=== PATIENT | female | born 1945 | race Caucasian/White ===

== ENCOUNTER 2021-08-28 12:20 | Inpatient (IN) | payer MEDICARE, MEDICAID ==
[~2021-08-28] VITALS: Ht 162.6 cm; Wt 59.5 kg
[2021-08-28] MEDS: METOPROLOL 5 MG/5 ML VIAL IV SCH ×3 (13:10→13:20)
[2021-08-28] MEDS ORDERED: DULC10SU2 PR (13:12)
[2021-08-28] MEDS ORDERED: ADV500INH INH (13:12)
[2021-08-28] MEDS ORDERED: ELIQ2.5T PO (13:12)
[2021-08-28] MEDS ORDERED: MELA5TAB21 PO (13:12)
[2021-08-28] MEDS ORDERED: PROA1AER2 INH (13:12)
[2021-08-28] MEDS ORDERED: SERT-141 PO (13:12)
[2021-08-28] MEDS ORDERED: PEPC1TAB5 PO (13:12)
[2021-08-28] MEDS ORDERED: MIDO5TA PO (13:12)
[2021-08-28 13:24] LABS: BASO % 0.5 % (0.0-1.0); EOS % 0.5 % (0.0-3.0); HEMATOCRIT 38.8 % (36.0-47.0); HEMOGLOBIN 11.1 g/dl (12.0-15.5); LYMPH # 0.7 10^3/uL (1.5-5.0); LYMPH % 8.2 % (24.0-44.0); MEAN CORPUSCULAR HEMOGLOBIN 31.9 pg (27.0-33.0); MEAN CORPUSCULAR HGB CONC 28.6 g/dl (32.0-36.5); MEAN CORPUSCULAR VOLUME 111.5 fl (80.0-96.0); MONO # 0.6 10^3/uL (0.0-0.8); MONO % 7.5 % (2.0-8.0); NEUTROPHILS # 6.8 10^3/uL (1.5-8.5); NEUTROPHILS % 82.1 % (36.0-66.0); PLATELET COUNT, AUTOMATED 151 10^3/uL (150-450); RED BLOOD COUNT 3.48 10^6/uL (4.00-5.40); WHITE BLOOD COUNT 8.3 10^3/uL (4.0-10.0)
[2021-08-28] MEDS ORDERED: AMIODARONE HCL 150 MG in IV 1 EA IV STA (13:29)
--- NOTE | 2021-08-28 13:44 | REP ---
INDICATION: tachycardia COMPARISON: None. TECHNIQUE: Portable AP view of the chest FINDINGS: Cardiomegaly and diffuse chronic interstitial changes. Bibasilar opacities including elements of consolidation and pleural effusion are suspected along with prominent pulmonary vasculature. IMPRESSION: Findings described above suggest CHF. Correlation is required. <Electronically signed by Gurinder Murray > 08/28/21 [id number]
[2021-08-28 13:46] LABS: RSV AMPLIFICATION NEGATIVE (NEGATIVE)
[2021-08-28 14:14] LABS: ALBUMIN 2.9 GM/DL (3.2-5.2); BILIRUBIN,DIRECT 0.4 MG/DL (0.0-0.2); BILIRUBIN,TOTAL 0.7 MG/DL (0.2-1.0); CREATININE FOR GFR 5.87 MG/DL (0.55-1.30); GLOMERULAR FILTRATION RATE 7.4 (>39); POTASSIUM SERUM 5.1 MEQ/L (3.5-5.1); THYROID STIMULATING HORMONE 2.56 uIU/ML (0.358-3.740); TOTAL PROTEIN 8.3 GM/DL (6.4-8.2)
[2021-08-28] MEDS ORDERED: NS 500 ML IV ONE (14:30)
[2021-08-28] MEDS ORDERED: DIGOXIN INJ 0.5 MG/2 ML AMP (J1160) IV ONE (15:40)
[2021-08-28] MEDS ORDERED: HOME MED LIST COMPLETE! XX SCH (16:20)
[2021-08-28] MEDS ORDERED: MELA1TAB9 PO (16:20)
[2021-08-28] MEDS ORDERED: ZOLO100T PO (16:20)
--- NOTE | 2021-08-28 17:09 | HPEPDOC ---
[facility] Medical History & Physical Date of Admission Aug 28, 2021 Date of Service: Aug 28, 2021 History and Physical CHIEF COMPLAINT: "I don't know" HISTORY OF PRESENT ILLNESS: 76-year-old female sent from [facility] with primary concerns of shortness of breath and increased heart rate. Patient is a very poor historian and looking through her records she has underlying dementia. Therefore it is difficult to obtain history and review of systems. When asked why she came to the hospital, she reported " I do not know". She was asked if she has chest pain, abdominal pain, problem with urination and bowel movements and report "all of that" but not able to provide details. She was asked if she was having any of the pain now but reported "no, before "but was unable to provide details. She did report abdominal pain which she can said was there for a while and was unable to provide details. In the emergency room department, she was noted to be in CHF exacerbation as well as atrial fibrillation with rapid ventricular response. There was a MOST form in the chart, which stated she is full code. PAST MEDICAL HISTORY: As per records at present 1. COPD (on home 02 2-3L) 2. Dementia 3. Combined systolic and diastolic heart failure 4. Atrial fibrillation 5. Anxiety 6. Thrombocytopenia 7. Hyperlipidemia 8. Hypertension 9. Coronary artery disease 10. GERD 11. Constipation 12. End-stage renal disease 13. Iron deficiency anemia PAST SURGICAL HISTORY: -As per records 1. Presence of urogenital implants SOCIAL HISTORY: She is unable to provide this due to her underlying FAMILY HISTORY: Unable to provide ALLERGIES: Please see below. REVIEW OF SYSTEMS: Difficult to obtain review of systems and entirely. As above. HOME MEDICATIONS: Please see below. PHYSICAL EXAMINATION: VITAL SIGNS: Please see below General: Lying in bed, no acute distress Head/Neck/Throat: Trachea midline, mucous membranes moist Eyes: Sclera anicteric, no erythema or discharge appreciated bilaterally Thorax: Normal respiratory effort on 3 L nasal cannula, crackles appreciated bilaterally Cardiovascular: Irregularly irregular rhythm with heart rates up to 126, normal S1, S2, radial and DP pulses appreciated Abdomen: Bowel sounds present, soft, mild tenderness reported with palpation, no rebound tenderness, not distended. Genitourinary: No CVA tenderness, no Reddy in place Musculoskeletal: On casual observation she is moving her extremities. When asked to sit up she says she needs help. Skin: Warm, dry Neurologic: Awake, alert, oriented to self and place. She is able to follow commands. She is able to lift her legs off the examination bed. Reports pain when asked to lift her arms. LABORATORY DATA: See below. IMAGING: Chest x-ray suggestive of CHF MICROBIOLOGY: Please see below. ASSESSMENT/PLAN: 76-year-old female sent from [place] for complaints of shortness of breath and atrial fibrillation with rapid ventricular response. She is a poor historian and unable to reliably provide a review of systems or give details about her past medical history. An attempt to call the family members (sister Ann Li at [phone]) was made. Patient sister reported that the patient has been in and out of hospitalization and rehab since November. Over the last few months, she was refusing to talk to them and felt that overall her clinical status was deteriorating. Looking at the records sent from [place] is noted that she was admitted from [facility]. They did not know she was there. Called the senior living, reported pt is normally forgetful and unable to recall medical hx. She is able to hold a conversation, but not always reliable. She has had episodes where she desat, and 02 has been increased in the past. Today, her nurse reported she was feeling short of breath and her 02 dropped to 70%; and her blood pressure was high, to the "150s". #Atrial fibrillation with rapid ventricular response -Presented with heart rates as high as 149 in the emergency room department. -Her EKG noted no acute ST/T wave changes. Follow-up on troponin -She received bb in the ed, and this dropped her blood pressure. Subsequently, received amiodarone 150x1, and digoxin 0.5 mg x 1, which helped decrease her heart rate to 125 and continues to come down. If she continues to have increased heart rate we will utilize digoxin 0.25x1. -Continue with apixaban #Shortness of breath -Likely secondary to her CHF exacerbation; plan as below. #CHF exacerbation -Likely induced by her tachyarrhythmia. She will likely benefit from dialysis with ultrafiltration. Nephrology has been consulted #Abdominal pain -Follow up in ct-scan of abd #ESRD -Nephrology made aware of pt. Plan for possible dialysis today or Thursday. #COPD -As per family, she is on baseline 2 to 3 L home oxygen. There was no wheezing appreciated on examination. Albuterol as needed low suspicion for COPD exacerbation at this time. #?CAD; HLD -This was reported in her med list problem sent from [facility]. However she is not on any antiplatelet therapy or statins once medications reconciled. #Depression/anxiety -Continue with sertraline #Dementia -Suspect this is advancing. Reorientation. DVT prophylaxis -Offered by apixaban Vital Signs Vital Signs Date Time Temp Pulse Resp B/P (MAP) Pulse Ox O2 Delivery O2 Flow Rate FiO2 08/28/21 15:25 142 08/28/21 15:20 91/60 (70) 08/28/21 13:40 95 08/28/21 13:03 Nasal Cannula 3.0 08/28/21 12:35 96.9 22 Laboratory Data Labs 24H Laboratory Tests 2 08/28/21 12:52: Immature Granulocyte % (Auto) 1.2, Neutrophils (%) (Auto) 82.1H, Lymphocytes (%) (Auto) 8.2L, Monocytes (%) (Auto) 7.5, Eosinophils (%) (Auto) 0.5, Basophils (%) (Auto) 0.5, Neutrophils # (Auto) 6.8, Lymphocytes # (Auto) 0.7L, Monocytes # (Auto) 0.6, Eosinophils # (Auto) 0.0, Basophils # (Auto) 0.0, Nucleated Red Blood Cells % (auto) 0.0, Anion Gap 6L, Glomerular Filtration Rate 7.4L, Calcium Level 9.0, Total Bilirubin 0.7, Direct Bilirubin 0.4H, Aspartate Amino Transf (AST/SGOT) 10, Alanine Aminotransferase (ALT/SGPT) 14, Alkaline Phosphatase 105, Total Protein 8.3H, Albumin 2.9L, Albumin/Globulin Ratio 0.5L, Thyroid Stimulating Hormone (TSH) 2.560, Coronavirus (COVID-19)(PCR) NEGATIVE, Influenza Type A (RT-PCR) NEGATIVE, Influenza Type B (RT-PCR) NEGATIVE, Respiratory Syncytial Virus (PCR) NEGATIVE 08/28/21 13:32: POC Troponin I (Misc) 0.06 CBC/BMP Laboratory Tests 08/28/21 12:52 Microbiology Microbiology 08/28/21 Blood Culture, Received Pending Home Medications Scheduled Apixaban (Eliquis) 2.5 Mg Tablet, 2.5 MG PO BID Famotidine (Pepcid) 20 Mg Tablet, 20 MG PO DAILY Melatonin (Melatonin) 5 Mg Tablet, 5 MG PO QHS Midodrine HCl (Midodrine HCl) 5 Mg Tablet, 5 MG PO 3XW TUE/THURS/SAT AM Salmeterol/Fluticasone (Advair 500-50 Diskus) 1 Each Blst.w.dev, 1 PUFF INH BID Sertraline Hcl (Zoloft) 100 Mg Tablet, 100 MG PO QPM Scheduled PRN Albuterol Sulfate (Proair Respiclick) 90 Mcg Aer.pow.ba, 2 PUFF INH Q6H PRN for SHORTNESS OF BREATH Bisacodyl (Dulcolax) 10 Mg Supp.rect, 1 SUPP OK DAILY PRN for CONSTIPATION Allergies Coded Allergies: NSAIDS (Non-Steroidal Anti-Inflamma (Verified Allergy, Unknown, 08/28/21) Penicillins (Verified Allergy, Unknown, 08/28/21) Quinolones (Verified Allergy, Unknown, 08/28/21) capsaicin (Verified Allergy, Unknown, 08/28/21) diclofenac (Verified Allergy, Unknown, 08/28/21) misoprostol (Verified Allergy, Unknown, 08/28/21) risedronate sodium (Verified Allergy, Unknown, 08/28/21) A-FIB/CHADSVASC A-FIB History Current/History of A-Fib/PAF?: Yes Current PO Anticoag Therapy: Yes JOSE ANTONIO CHATMAN M.D. Aug 28, 2021 17:09
[2021-08-28] MEDS ORDERED: ALBUTEROL 90 MCG/ACT 8GM HFA INHALER INH PRN (17:15)
[2021-08-28] MEDS ORDERED: ISOVUE-370 76% 100ML VIAL As Ordered ONE (17:26)
[2021-08-28] MEDS ORDERED: DIGOXIN 0.25 MG TAB PO ONE (22:00)
[2021-08-29] VITALS: BP 92/50
[2021-08-29] MEDS: SERTRALINE 100 MG TAB PO SCH ×2 (00:27→21:35)
[2021-08-29] MEDS: APIXABAN 2.5 MG TAB (ELIQUIS) PO SCH ×3 (00:27→21:35)
--- NOTE | 2021-08-29 00:38 | REPVR ---
PROCEDURE INFORMATION: Exam: CTA Chest With Contrast Exam date and time: 08/28/2021 11:34 PM Age: 76 years old Clinical indication: Other: R/O pe TECHNIQUE: Imaging protocol: Computed tomographic angiography of the chest with contrast. 3D rendering (Not supervised by radiologist): MIP and/or 3D reconstructed images were created by the technologist. Radiation optimization: All CT scans at this facility use at least one of these dose optimization techniques: automated exposure control; mA and/or kV adjustment per patient size (includes targeted exams where dose is matched to clinical indication); or iterative reconstruction. Contrast material: ISOVUE 370; Contrast volume: 100 ml; Contrast route: INTRAVENOUS (IV); COMPARISON: CR PORTABLE CHEST X-RAY 08/28/2021 1:23 PM FINDINGS: Pulmonary arteries: Suggestion of pulmonary arterial hypertension. No pulmonary emboli. Aorta: Atherosclerotic disease of the thoracic aorta. Lungs: Bibasilar mucoid impaction. Mild interstitial pulmonary edema. Pleural spaces: Small bilateral pleural effusions with adjacent compressive atelectasis. Heart: Cardiomegaly. Small to moderate pericardial effusion. Coarsely calcified mitral annulus. Atherosclerotic disease of the coronary arteries. Lymph nodes: Unremarkable. No enlarged lymph nodes. Bones/joints: Osteopenia. Severe osteoarthritis in the bilateral shoulders with extensive multiple loose bodies and marginal osteophytes. Subacute to chronic fracture deformities of several bilateral anterolateral ribs. Kyphosis of the thoracic spine. Severe multilevel degenerative disease. Anterior wedge compression fractures of T4 and T5, likely chronic. Mild dextroscoliosis. Soft tissues: Unremarkable. IMPRESSION: No acute pulmonary embolic disease. Suggestion of pulmonary arterial hypertension Cardiomegaly. Small to moderate pericardial effusion. Small bilateral pleural effusions with adjacent compressive atelectasis. Mild interstitial pulmonary edema. Electronically signed by: Franklyn Spain On 08/29/2021 00:37:47 AM
--- NOTE | 2021-08-29 00:44 | REPVR ---
PROCEDURE INFORMATION: Exam: CT Abdomen And Pelvis With Contrast Exam date and time: 08/28/2021 11:34 PM Age: 76 years old Clinical indication: Other: Diffuse abd pain TECHNIQUE: Imaging protocol: Computed tomography of the abdomen and pelvis with contrast. Radiation optimization: All CT scans at this facility use at least one of these dose optimization techniques: automated exposure control; mA and/or kV adjustment per patient size (includes targeted exams where dose is matched to clinical indication); or iterative reconstruction. Contrast material: ISOVUE 370; Contrast volume: 100 ml; Contrast route: INTRAVENOUS (IV); COMPARISON: CR PORTABLE CHEST X-RAY 08/28/2021 1:23 PM FINDINGS: Liver: Mild hepatomegaly. Liver contour nodularity is concerning for cirrhosis. Gallbladder and bile ducts: Mildly distended gallbladder. Pancreas: Normal. No ductal dilation. Spleen: Normal. No splenomegaly. Adrenal glands: Mild bilateral adrenal hyperplasia. Kidneys and ureters: Bilateral renal cortical atrophy. Multiple bilateral renal cysts and additional subcentimeter low-attenuation renal lesions, too small to characterize. Stomach and bowel: Innumerable surgical clips in the left upper quadrant with suggestion of partial gastrectomy. Scattered colonic diverticula. No evidence of acute diverticulitis. Mild nonspecific bowel wall thickening involving loops of small and large bowel. Under distension is favored. Enterocolitis cannot be completely excluded. Appendix: No evidence of appendicitis. Intraperitoneal space: Unremarkable. No free air. No significant fluid collection. Vasculature: Severe atherosclerotic disease of the abdominal aorta. Lymph nodes: Unremarkable. No enlarged lymph nodes. Urinary bladder: Unremarkable as visualized. Reproductive: Status post hysterectomy. Bones/joints: Osteopenia. Severe multilevel degenerative disease and facet arthropathy of the lumbar spine. Stenosis of the spinal canal and neural foramina at several levels. Mild scoliosis. Soft tissues: Unremarkable. IMPRESSION: Innumerable surgical clips in the left upper quadrant with suggestion of partial gastrectomy. Scattered colonic diverticula. No evidence of acute diverticulitis. Mild nonspecific bowel wall thickening involving loops of small and large bowel. Under distension is favored. Enterocolitis cannot be completely excluded. Normal appendix. No hydronephrosis or nephrolithiasis bilaterally. Mildly distended gallbladder without other specific signs of acute cholecystitis. Mild hepatomegaly. Liver contour nodularity is concerning for cirrhosis. COMMENTS: Consistent with the [employer]'s Incidental Findings Committee white paper (J Am Mikey Radiol 2018): Any incidental renal lesion less than 1 cm or classified as too small to characterize, or any incidental cystic renal lesion characterized as simple-appearing, is likely benign. No follow-up imaging is recommended for these lesions per consensus recommendations based on imaging criteria. Electronically signed by: Franklyn Spain On 08/29/2021 00:43:54 AM
[2021-08-29 04:00] VITALS: BP 142/74
[2021-08-29 06:09] LABS: HEMATOCRIT 35.4 % (36.0-47.0); MEAN CORPUSCULAR HEMOGLOBIN 31.8 pg (27.0-33.0); MEAN CORPUSCULAR HGB CONC 28.2 g/dl (32.0-36.5); MEAN CORPUSCULAR VOLUME 112.7 fl (80.0-96.0); PLATELET COUNT, AUTOMATED 135 10^3/uL (150-450); RED BLOOD COUNT 3.14 10^6/uL (4.00-5.40); WHITE BLOOD COUNT 8.1 10^3/uL (4.0-10.0)
[2021-08-29 06:30] LABS: ALBUMIN 2.4 GM/DL (3.2-5.2); BILIRUBIN,TOTAL 0.6 MG/DL (0.2-1.0); CALCIUM LEVEL 9.2 MG/DL (8.8-10.2); CREATININE FOR GFR 6.36 MG/DL (0.55-1.30); GLOMERULAR FILTRATION RATE 6.8 (>39); MAGNESIUM LEVEL 2.5 MG/DL (1.8-2.4); PHOSPHORUS LEVEL 7.9 MG/DL (2.5-4.9); POTASSIUM SERUM 5.5 MEQ/L (3.5-5.1); TOTAL PROTEIN 6.8 GM/DL (6.4-8.2)
--- NOTE | 2021-08-29 06:33 | ECGEPIP ---
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
[2021-08-29] MEDS ORDERED: LIDOCAINE 1% SDV 5ML VIAL SC PRN (07:15)
[2021-08-29] MEDS ORDERED: SODIUM CHLORIDE 0.9% 1000ML IV PRN (07:15)
[2021-08-29] MEDS: MIDODRINE 5 MG TAB PO SCH (08:04)
[2021-08-29] MEDS: DIGOXIN 0.25 MG TAB PO SCH (08:05)
[2021-08-29 08:19] VITALS: BP 114/70
[2021-08-29] MEDS: FAMOTIDINE 20 MG TAB PO SCH (12:51)
--- NOTE | 2021-08-29 13:02 | IPNPDOC ---
Text Note Date of Service The patient was seen on 08/29/21. NOTE Subjective: 76-year-old female presented from [facility] with primary concerns of shortness of breath and increased heart rate. She is a very poor historian and has clinically been deteriorating over the year. As per the family, she has required multiple admissions to hospitals as well as rehabs for various reasons that they were unaware of. The patient is unable to explain these. She was seen and examined at bedside this morning in dialysis. When she was asked if there was anything bothering her, she reported " everything and always" she was unable to specify her particular complaint or provide details. She does have underlying dementia which makes it difficult to obtain review of systems. Review of systems: 1 as above Physical exam: General: Lying in bed, no acute distress Head/Neck/Throat: Trachea midline, mucous membranes moist Eyes: Sclera anicteric, no erythema or discharge appreciated bilaterally Thorax: Normal respiratory effort 3 L nasal cannula, bibasilar crackles appreciated bilaterally Cardiovascular: Normal rate, regular rhythm, normal S1, S2; no S3, S4, rubs/gallops/murmurs Abdomen: Bowel sounds present, soft, mild tenderness reported with palpation diffusely Genitourinary: No CVA tenderness, no Reddy in place Musculoskeletal: Moving all extremities on casual observation Skin: Warm, dry Neurologic: AAOx3, speech fluent and goal-directed, no focal deficits, grossly intact Labs: See below Imaging: Please see imaging section Assessment/plan: #Atrial fibrillation with rapid ventricular response -Presented with heart rates as high as 149 in the emergency room department. Today, better controlled and less than 110. -Her EKG noted no acute ST/T wave changes, troponin trend was negative. -Unable to tolerate beta-barbara due to a drop in blood pressure. C/w digoxin. Systemic anticoagulation with apixaban. -Follow-up on echocardiogram #Shortness of breath -Resolved. Likely secondary to her CHF exacerbation; plan as below. -CTA of chest is negative for pe. #CHF exacerbation -Likely induced by her tachyarrhythmia. She will likely benefit from dialysis with ultrafiltration. Nephrology has been consulted -Follow-up on echocardiogram #Abdominal pain -Likely due to underlying cirrhosis; and possible enterocolitis seen on ct. She is tolerating a diet, no nausea, vomiting reported. #ESRD -She got dialyzed on 08/29, nephrology following and will determine next dialysis session. #COPD -As per family, she is on baseline 2 to 3 L home oxygen. There was no wheezing appreciated on examination. Albuterol as needed low suspicion for COPD exacerbation at this time. #?CAD; HLD -This was reported in her med list problem sent from [employer]. However she is not on any antiplatelet therapy or statins once medications reconciled. #Depression/anxiety -Continue with sertraline #Dementia -Suspect this is advancing. Reorientation. #Deconditioned/osteopenia and OA -Severe osteoarthritis in the bilateral shoulders. Subacute to chronic fracture deformities of several bilateral anterolateral ribs. Kyphosis of the thoracic spine. Severe multilevel degenerative disease. Anterior wedge compression fractures of T4 and T5, likely chronic. Mild dextroscoliosis. -Check vit. d levels. DVT prophylaxis -Offered by apixaban VS,Seymour, I+O VS, Seymour, I+O Laboratory Tests 08/29/21 05:31 Vital Signs Date Time Temp Pulse Resp B/P (MAP) Pulse Ox O2 Delivery O2 Flow Rate FiO2 08/29/21 08:19 97.4 115 20 114/70 (85) 99 Nasal Cannula 4.0 I&O- Last 24 Hours up to 6 AM 08/29/21 06:00 Intake Total 0 ml Balance 0 ml JOSE ANTONIO CHATMAN M.D. Aug 29, 2021 13:02
[2021-08-29 13:03] VITALS: BP 100/60
[2021-08-29 14:10] LABS: PERCENT SATURATION 74.3 % (13.2-45.0)
[2021-08-29 16:00] VITALS: BP 92/56
--- NOTE | 2021-08-29 17:14 | CR ---
NEPHROLOGY CONSULTATION DATE: 08/28/2021 REFERRING PHYSICIAN: Jono Ny MD REASON FOR CONSULTATION: To assist in the management of end-stage renal disease and shortness of breath. HISTORY OF PRESENT ILLNESS: Mrs. Downing is a 76-year-old female with multiple chronic medical problems. The patient is currently a resident at care home in [facility]. She is there for acute rehab and receives her maintenance hemodialysis in outpatient [facility] clinic for the last few weeks. She reports that she has been on dialysis for about 7 years in [place] and recently she was admitted to [facility] for rehab. She was sent to emergency room due to shortness of breath. Apparently she did miss her dialysis on August 27. The patient has significant dementia and unable to provide any accurate information. Nephrology consultation was requested and patient seen in the emergency room. PAST MEDICAL AND SURGICAL HISTORY: The patient herself is not able to provide much information other than a few questions. However, she is unable to provide accurate information. According to records, she has dementia, combined systolic and diastolic congestive heart failure, atrial fibrillation with rapid ventricular rate, end-stage renal disease, hypertension, hyperlipidemia, anxiety, gastroesophageal reflux disease and anemia. PAST SURGICAL HISTORY: Significant for right arm AV fistula creation and no other information available at present. PERSONAL AND SOCIAL HISTORY: Patient is currently a care home resident for rehab. She does not smoke or drink. It is not clear whether she had prior history of smoking. FAMILY HISTORY: Noncontributory and unobtainable. REVIEW OF SYSTEMS: Patient is not able to provide much accurate information. No fever reported by care home and patient is quite short of breath. She did miss her dialysis treatment on August 27. MEDICATIONS: Her medications in the nursing include Eliquis 3.5 mg b.i.d., Pepcid 20 mg daily, melatonin 5 mg at bedtime, midodrine 5 mg t.i.d., Advair Diskus 500/50 b.i.d., Sertraline 100 mg at bedtime, Albuterol inhaler as needed for shortness of breath and Dulcolax 10 mg rectal suppository as needed for constipation. ALLERGIES: She has multiple allergies including PENICILLIN, quinolones, NONSTEROIDALS, MISOPROSTOL AND NISEDRONATE. PHYSICAL EXAMINATION: This elderly, frail lady lying in the bed quite short of breath with oxygen induced. Temperature 97 degrees Fahrenheit, heart rate in the 140s and respiratory rate 20 per minute. Blood pressure 190/73 mmHg and oxygen saturation 97% on three liters oxygen. Her head is atraumatic. Oral mucosa is dry. Neck is supple and JVD is about 8 cm above the sternal angle. Heart sounds are tachycardic and irregular in rhythm. Lungs with diminished breath sounds and bilateral rales. Abdomen soft with significant tenderness in right upper and lower quadrant. Bowel sounds are present. No hepatosplenomegaly. Extremities without any cyanosis or clubbing. She is tender to touch wherever you touch her. Neurologically she is awake, able to answer questions. However, she is not very well oriented to her previous problems and history. LABORATORY DATA: WBC count 8.3, hemoglobin 11.1 and hematocrit 38.8. Platelets 151. Sodium 138, potassium 5.1, chloride 97, CO2 35, BUN 44 and creatinine 5.87. Glucose 136 and potassium 9.0. Total protein 8.3 and albumin 2.9. TSH level is 2.56. Chest x-ray done in the emergency room was consistent with cardiomegaly and chronic changes in addition to congestive heart failure. PROBLEMS: 1. Shortness of breath probably related to atrial fibrillation with rapid ventricular rate. She came with heart rate in the 140s. She probably has congestive heart failure related to rapid atrial fibrillation. At present, she has also missed her hemodialysis treatment yesterday. She is not hemodynamically quite stable for a gentle dialysis due to rapid ventricular rate with atrial fibrillation and risk for hypotension. Once she is hemodynamically stable, then we will plan to dialyze her. There is no emergent risk for respiratory failure at present. 2. End-stage renal disease. The patient has been on maintenance hemodialysis and she missed her dialysis on August 27. 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 Her electrolytes are stable. 3. Atrial fibrillation with rapid ventricular rate. The patient is being treated with Digoxin and she had already been on Eliquis as the outpatient. She has history of hypotension during dialysis so she has not been on beta barbara therapy. 4. Hypotension. Blood pressure is usually low during dialysis and she has been on midodrine 5 mg t.i.d. I will recommend to avoid calcium channel barbara or beta barbara use and her A fib can probably be controlled with digoxin or amiodarone. 5. Anemia. Her anemia is stable at present and does not need any urgent intervention. 6. Abdominal pain and sudden shortness of breath. I have discussed with the admitting physician who has concerns about possibility of pulmonary embolism. 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 She is already anticoagulated with Eliquis. Thank you for involving me in the care of Mrs. Downing. I will follow her along with you.
--- NOTE | 2021-08-29 18:57 | IPN ---
NEPHROLOGY PROGRESS NOTE DATE: 08/29/2021 SUBJECTIVE: Mrs. Downing is seen this morning during hemodialysis. She is feeling better and tolerating her dialysis treatment. Her heart rate has improved significantly compared to last night. She is still short of breath but feels better. She has no fever or chills. OBJECTIVE: PHYSICAL EXAMINATION: VITAL SIGNS: Temperature is 97.4 degrees Fahrenheit, heart rate between 82 and 115 per minute, respiratory rate 20 per minute, blood pressure was 114/70 mm of mercury, however went down to 70/52 during dialysis. She remains on oxygen 4 liters with oxygen saturation 99%. HEENT: Her head is atraumatic. Oral mucosa is dry. NECK: Neck veins are quite prominent and neck is supple. HEART: Sounds are irregular and somewhat tachycardic but improved compared to yesterday. LUNGS: Bilateral expiratory wheezing. ABDOMEN: Soft and bowel sounds are present. EXTREMITIES: Without any cyanosis or clubbing. Right arm AV fistula is currently being used for dialysis. NEUROLOGICAL: She is awake and able to answer simple questions. LABORATORY STUDIES: Today's labs show a WBC count of 8.1, hemoglobin 10.0 and hematocrit 35.4. Sodium 139, potassium 5.5, CO2 34, BUN 49 and creatinine 6.36. Glucose is 89 and calcium 9.2. Phosphorous level is 7.9. PROBLEMS: 1. Shortness of breath she has multiple factors causing her shortness of breath including systolic and diastolic congestive heart failure in the setting of end-stage renal disease and a missed dialysis treatment. She also had rapid atrial fibrillation which probably contributed to her decompensation. We will try to optimize her volume status with hemodialysis and removal of fluid. We are trying to remove about 3 liters of fluid, however her blood pressure is already low so she is probably not going to be able to remove more than 2 liters today. 2. End-stage renal disease - The patient did miss her dialysis on the and she is being dialyzed right now. She is tolerating her dialysis with some low blood pressure. 3. Hyperkalemia this is related to end-stage renal disease and missed hemodialysis. This will be corrected with dialysis as we are using 2.0 mEq potassium in her dialysis bath. 4. Anemia her anemia is stable and does not need any urgent intervention. 5. Recurrent hypotension she has a history of frequent hypotension during dialysis and has been on Midodrine 5 mg three times daily. We will consider to increase the dose if needed. At present she should continue with Midodrine 5 mg three times daily.
[2021-08-29 20:00] VITALS: BP 92/54
[2021-08-30] VITALS: BP_SYST 100; BP_SYST 92; BP_DIAS 50; BP_DIAS 54
[2021-08-30 04:00] VITALS: BP 106/61
[2021-08-30] MEDS ORDERED: ACETAMINOPHEN TAB 650MG DOSE (2X325MG) PO ONE (05:05)
[2021-08-30 05:11] LABS: HEMATOCRIT 37.7 % (36.0-47.0); HEMOGLOBIN 10.6 g/dl (12.0-15.5); MEAN CORPUSCULAR HEMOGLOBIN 32.1 pg (27.0-33.0); MEAN CORPUSCULAR HGB CONC 28.1 g/dl (32.0-36.5); PLATELET COUNT, AUTOMATED 150 10^3/uL (150-450); WHITE BLOOD COUNT 8.3 10^3/uL (4.0-10.0)
[2021-08-30 05:12] LABS: MEAN CORPUSCULAR VOLUME 114.2 fl (80.0-96.0)
[2021-08-30 05:34] LABS: CALCIUM LEVEL 8.8 MG/DL (8.8-10.2); CREATININE FOR GFR 3.56 MG/DL (0.55-1.30); GLOMERULAR FILTRATION RATE 13.2 (>39); MAGNESIUM LEVEL 2.2 MG/DL (1.8-2.4); PHOSPHORUS LEVEL 5.2 MG/DL (2.5-4.9); POTASSIUM SERUM 5.7 MEQ/L (3.5-5.1)
[2021-08-30] MEDS ORDERED: SODIUM CHLORIDE 0.9% 1000ML IV PRN (07:10)
[2021-08-30] MEDS ORDERED: LIDOCAINE 1% SDV 5ML VIAL SC PRN (07:10)
[2021-08-30 08:00] VITALS: BP 103/55
[2021-08-30] MEDS: MIDODRINE 5 MG TAB PO SCH (08:19)
[2021-08-30] MEDS: APIXABAN 2.5 MG TAB (ELIQUIS) PO SCH ×2 (08:19→20:23)
[2021-08-30] MEDS: DIGOXIN 0.25 MG TAB PO SCH (08:19)
[2021-08-30 08:59] LABS: TOTAL 25(OH) VITAMIN D 41.2 NG/ML (30.0-100.0)
[2021-08-30 09:00] LABS: FOLATE 5.5 NG/ML (>5.4)
[2021-08-30] MEDS ORDERED: ONDANSETRON 4 MG TAB PO ONE (09:35)
--- NOTE | 2021-08-30 10:04 | IPNPDOC ---
Text Note Date of Service The patient was seen on 08/30/21. NOTE Subjective: 76-year-old female presented from [facility] with primary concerns of shortness of breath and increased heart rate. She is a very poor historian and has clinically been deteriorating over the year. As per the family, she has required multiple admissions to hospitals as well as rehabs for various reasons that they were unaware of. The patient is unable to explain these. She was seen and examined at bedside this morning in dialysis. She reported f eeling nauseated today, and having abdominal pain. Otherwise had no new complaints. Review of systems: 10 point review of system was negative except for what is noted in the HPI Physical exam: General: Lying in bed, no acute distress Head/Neck/Throat: Trachea midline, mucous membranes moist Eyes: Sclera anicteric, no erythema or discharge appreciated bilaterally Thorax: Normal respiratory effort 3 L nasal cannula, bibasilar crackles appreciated bilaterally Cardiovascular: Normal rate, regular rhythm, normal S1, S2; no S3, S4, rubs/gallops/murmurs Abdomen: Bowel sounds present, soft, mild tenderness reported with palpation diffusely Genitourinary: No CVA tenderness, no Reddy in place Musculoskeletal: Moving all extremities on casual observation Skin: Warm, dry Neurologic: AAOx3, speech fluent and goal-directed, no focal deficits, grossly intact Labs: See below Imaging: Please see imaging section Assessment/plan: #Atrial fibrillation with rapid ventricular response -Resolved. C/w digoxin. Systemic anticoagulation with apixaban. -Follow-up on echocardiogram #Shortness of breath -Resolved. Likely secondary to her CHF exacerbation, missed dialysis; plan as below. -CTA of chest is negative for pe. #CHF exacerbation -Likely induced by her tachyarrhythmia; dialysis as planned by nephrology team -Follow-up on echocardiogram #Abdominal pain -Likely due to underlying cirrhosis; and possible enterocolitis seen on ct. She is tolerating a diet, had some nausea and vomiting today. Symptomatic management with Zofran #ESRD -She got dialyzed on , nephrology following and will determine next dialysis session. #COPD -As per family, she is on baseline 2 to 3 L home oxygen. There was no wheezing appreciated on examination. Albuterol as needed low suspicion for COPD exacerbation at this time. #?CAD; HLD -This was reported in her med list problem sent from [facility]. However she is not on any antiplatelet therapy or statins once medications reconciled. #Depression/anxiety -Continue with sertraline #Dementia -Suspect this is advancing. Reorientation. #Deconditioned/osteopenia and OA -Severe osteoarthritis in the bilateral shoulders. Subacute to chronic fracture deformities of several bilateral anterolateral ribs. Kyphosis of the thoracic spine. Severe multilevel degenerative disease. Anterior wedge compression fractures of T4 and T5, likely chronic. Mild dextroscoliosis. -Check vit. d levels. DVT prophylaxis -Offered by apixaban VS,Fishbone, I+O VS, Fishbone, I+O Laboratory Tests 08/30/21 04:47 Vital Signs Date Time Temp Pulse Resp B/P (MAP) Pulse Ox O2 Delivery O2 Flow Rate FiO2 08/30/21 08:19 95 08/30/21 08:00 98.4 16 103/55 (71) 100 Nasal Cannula 3.0 I&O- Last 24 Hours up to 6 AM 08/30/21 06:00 Intake Total 480 ml Output Total 2000 ml Balance -1520 ml JOSE ANTONIO CHATMAN M.D. Aug 30, 2021 10:04
--- NOTE | 2021-08-30 12:23 | IPN ---
NEPHROLOGY PROGRESS NOTE DATE: 08/30/2021 SUBJECTIVE: Ms. Downing is seen this morning on her bedside. She is still short of breath and weak. Her blood pressure has been low and she remains on midodrine 5 mg three times a day. Her heart rate has been below 100 most of the time. She was admitted with shortness of breath and rapid atrial fibrillation with heart rate in the 140s. She was dialyzed yesterday due to congestive heart failure and hyperkalemia; however, I am surprised to see her potassium level is still elevated at 5.7 this morning. We decided to dialyze her again today in view of hyperkalemia and congestive heart failure. PHYSICAL EXAMINATION: VITAL SIGNS: Temperature 98.4 degrees Fahrenheit, heart rate 94 per minute, respiratory rate 16 per minute, blood pressure 90s at the start of dialysis and went down to 78/50 mmHg, we were trying to remove about 2.5 liters of fluid; however, our goal has been cut down due to low blood pressure. Her oxygen saturation 100% on 3 liters oxygen. HEAD: Atraumatic. NECK: Supple and jugular venous distention (JVD) mildly elevated. HEART SOUNDS: Irregular. LUNGS: Bilateral wheezing and rhonchi. ABDOMEN: Soft and nontender. Bowel sounds are normal. EXTREMITIES: Without any cyanosis or clubbing. Right arm arteriovenous (AV) fistula is patent. NEUROLOGIC: She is awake and able to answer questions. LABORATORY DATA: Today's labs shows sodium 135, potassium 5.7, chloride 101, CO2 27, BUN 19, creatinine 3.56, glucose 82, calcium 8.2, phosphorus, however, is down to 5.2. Hemoglobin 10.6, hematocrit 37.7. PROBLEMS: 1. End-stage renal disease. Patient did miss one dialysis prior to and she was dialyzed yesterday. She is being dialyzed again today in view of hyperkalemia and congestive heart failure. 2. Hyperkalemia. Her potassium level was 5.5 yesterday and we dialyzed her with 2.0 mEq potassium bath. Today's hypokalemia is unexpected and probably she has some hemolysis, as it is reported in her labs. She is being dialyzed with 2.0 mEq potassium bath and that will completely correct her hyperkalemia. 3. Anemia. Her anemia is stable and does not need any urgent intervention. 4. Atrial fibrillation with rapid ventricular rate. She is doing better and heart rate has improved significantly. She should continue with chronic medications.
[2021-08-30] MEDS: IPRATROPIUM 0.5MG/ALBUTEROL 2.5MG INH SOL UD 3ML (DUONEB) NEB SCH ×2 (14:00→19:08)
--- NOTE | 2021-08-30 14:32 | ECHO ---
ECHOCARDIOGRAM DATE OF PROCEDURE: 08/29/2021 Age: Gender: Height: Weight: REFERRING PHYSICIAN: Dr. Jono Ny INDICATION: 2D MEASUREMENTS: Aortic root: 3.1 cm Left atrium 4.9 cm Left ventricle diastole 3.0 cm Ventricular septum 1.11 cm Posterior wall 2.2 cm DOPPLER MEASUREMENTS: No aortic stenosis or regurgitation. Aortic valve velocity 183 cm/s LVOT velocity 138 cm/s No mitral regurgitation. No mitral stenosis. Trace tricuspid regurgitation. Right ventricular systolic pressure 33-38 mmHg Estimated right atrial pressure of 5-10 mmHg Mild pulmonic regurgitation. DESCRIPTION: Rhythm was atrial fibrillation. This was a moderately technically difficult echocardiogram. No aortic arch view (technically difficult). This was a 2D, M mode, color flow Doppler, and pulse wave Doppler examination. CONCLUSIONS: 1. Normal left ventricle internal dimensions and wall thickness. Normal regional LV wall motion and wall thickening. Normal LV systolic function. LVEF 70% by visual estimate. 2. Severe left atrial dilatation. 3. Severe mitral annular calcification. No mitral regurgitation or stenosis. 4. Moderates-size pericardial effusion, measuring maximum 1.5 cm over the posterior wall of left ventricle. No diastolic chamber collapse. 5. Left pleural effusion. 6. Mild aortic valve sclerosis of a 3-cuspid aortic valve. No aortic regurgitation. 7. Suggestive of mild elevation of estimated right ventricle systolic pressure.
[2021-08-30 16:00] VITALS: BP 95/57
[2021-08-30] MEDS: SERTRALINE 100 MG TAB PO SCH (20:23)
[2021-08-31] VITALS: BP 103/48
[2021-08-31] MEDS: IPRATROPIUM 0.5MG/ALBUTEROL 2.5MG INH SOL UD 3ML (DUONEB) NEB SCH ×4 (01:22→19:25)
[2021-08-31 04:00] VITALS: BP 110/60
[2021-08-31 06:30] LABS: CALCIUM LEVEL 9.1 MG/DL (8.8-10.2); CREATININE FOR GFR 2.63 MG/DL (0.55-1.30); GLOMERULAR FILTRATION RATE 18.8 (>39); PHOSPHORUS LEVEL 4.8 MG/DL (2.5-4.9); POTASSIUM SERUM 4.4 MEQ/L (3.5-5.1)
[2021-08-31 07:55] VITALS: BP 98/48
[2021-08-31] MEDS: APIXABAN 2.5 MG TAB (ELIQUIS) PO SCH ×2 (10:21→19:53)
[2021-08-31] MEDS: FAMOTIDINE 20 MG TAB PO SCH (10:21)
[2021-08-31] MEDS: MIDODRINE 5 MG TAB PO SCH (10:21)
[2021-08-31] MEDS: DIGOXIN 0.25 MG TAB PO SCH (10:24)
--- NOTE | 2021-08-31 11:18 | IPNPDOC ---
Text Note Date of Service The patient was seen on 08/31/21. NOTE Subjective: 76-year-old female presented from [facility] with primary concerns of shortness of breath and increased heart rate. She is a very poor historian and has clinically been deteriorating over the year. As per the family, she has required multiple admissions to hospitals as well as rehabs for various reasons that they were unaware of. The patient is unable to explain these. Seen and examined at bedside this morning. She reports improvement in her ab dominal pain, and reported overall feeling better. She denied chest pain or shortness of breath. Review of systems: 10 point review of system was negative except for what is noted in the HPI Physical exam: General: Lying in bed, no acute distress Head/Neck/Throat: Trachea midline, mucous membranes moist Eyes: Sclera anicteric, no erythema or discharge appreciated bilaterally Thorax: Normal respiratory effort 3 L nasal cannula, bibasilar crackles appreciated bilaterally Cardiovascular: Normal rate, regular rhythm, normal S1, S2; no S3, S4, rubs/gallops/murmurs Abdomen: Bowel sounds present, soft, mild tenderness reported with palpation diffusely Genitourinary: No CVA tenderness, no Reddy in place Musculoskeletal: Moving all extremities on casual observation Skin: Warm, dry Neurologic: AAOx3, speech fluent and goal-directed, no focal deficits, grossly intact Labs: See below Imaging: Please see imaging section Assessment/plan: #Atrial fibrillation with rapid ventricular response -Resolved. C/w digoxin. Systemic anticoagulation with apixaban. -Follow-up on echocardiogram #Shortness of breath -Resolved. Likely secondary to her CHF exacerbation, missed dialysis; plan as below. -CTA of chest is negative for pe. #CHF exacerbation -Echocardiogram noted left ventricular ejection fraction of 70%. Likely induced by her tachyarrhythmia; dialysis as planned by nephrology team -Follow-up on echocardiogram #Abdominal pain -Likely due to underlying cirrhosis; and possible enterocolitis seen on ct. She is tolerating a diet, had some nausea and vomiting today. Symptomatic management with Zofran #ESRD -She got dialyzed on , nephrology following and will determine next dialysis session. #COPD -As per family, she is on baseline 2 to 3 L home oxygen. There was no wheezing appreciated on examination. Albuterol as needed low suspicion for COPD exacerbation at this time. #?CAD; HLD -This was reported in her med list problem sent from [facility]. However she is not on any antiplatelet therapy or statins once medications reconciled. #Depression/anxiety -Continue with sertraline #Dementia -Suspect this is advancing. Reorientation. #Deconditioned/osteopenia and OA -Severe osteoarthritis in the bilateral shoulders. Subacute to chronic fracture deformities of several bilateral anterolateral ribs. Kyphosis of the thoracic spine. Severe multilevel degenerative disease. Anterior wedge compression fractures of T4 and T5, likely chronic. Mild dextroscoliosis. -Check vit. d levels. DVT prophylaxis -Offered by apixaban Disposition: If pt continues to tolerate diet. She can be discharged back to [facility] VS,[place], I+O [facility] I+O Laboratory Tests 08/31/21 05:48 Vital Signs Date Time Temp Pulse Resp B/P (MAP) Pulse Ox O2 Delivery O2 Flow Rate FiO2 08/31/21 10:24 71 08/31/21 07:55 98.0 20 98/48 (65) 92 Nasal Cannula 3.0 I&O- Last 24 Hours up to 6 AM 08/31/21 06:00 Intake Total 568 ml Output Total 1500 ml Balance -932 ml JOSE ANTONIO CHATMAN M.D. Aug 31, 2021 11:18
--- NOTE | 2021-08-31 12:28 | IPN ---
NEPHROLOGY PROGRESS NOTE DATE: 08/31/2021 SUBJECTIVE: Vianey was seen and examined this morning at the bedside. She denies any complaints. No new shortness of breath. No palpitations. She was dialyzed yesterday with 1.5 liters of fluid removed. PHYSICAL EXAMINATION: VITAL SIGNS: Temperature 98.0, pulse 75respiratory rate 20, blood pressure 98/48, saturating 92% on 3 liters nasal cannula. INTAKE AND OUTPUT: Weight in the bed scale today is 63.3 kg. GENERAL: Patient is seen sitting in bed, elderly female, awake, alert, comfortable. Head of the bed is elevated. She is in no distress. HEENT: Sclerae is anicteric. Tongue is moist. Nasal cannula is in place. HEART SOUNDS: Irregularly irregular. LUNGS: Show diminish breath sounds bilaterally, but she is comfortable on nasal cannula. No accessory muscle use. No tachypnea. There is mildly reduced breath sounds at the bases, but there are no crackles or rales. ABDOMEN: Soft, obese and nontender. There is a fistula in the right arm, which is patent with thrill and bruit. EXTREMITIES: There is no edema in the extremities. She moves her extremities on command. SKIN: Warm and dry. Normal temperature and turgor. No pallor. LABORATORY STUDIES: White count 8.3, hemoglobin 10.6, platelets 160. Sodium 136, potassium 4.4, bicarbonate 28, BUN 13, creatinine 2.6. Blood cultures: No growth for 48 hours times two sets. CT angiogram August 28, 2021 shows no pulmonary embolism (PE). There is no cardiomegaly and no pericardial effusion and small bilateral pleural effusion and mild interstitial pulmonary edema. INPATIENT MEDICATIONS: Reviewed by myself. She continues on; - Duo-Nebs every 6 hours - Eliquis2.5 mg by mouth twice a day - digoxin 0.25 mg by mouth daily - Pepcid 20 mg every other day - midodrine 5 mg by mouth three times a day - sertraline 100 mg by mouth at bedtime. PROBLEMS: 1. End-stage renal disease on hemodialysis. Patient was dialyzed on on and on Thursday. She had a total of 3.5 liters removed. She had interstitial pulmonary edema and small pleural effusions on her CT angiogram. Her volume status is improved. Her next dialysis will be on Thursday. Her electrolytes and volume status are acceptable. 2. Hyperkalemia. It is resolved with back to back dialysis treatments on and Thursday. She is on a renal diet. Next dialysis will be on Thursday. 3. Chronic hypotension. She continues on midodrine. 4. Atrial fibrillation with rapid ventricular response. She is on systemic anticoagulation with low dose Eliquis and she is on digoxin which is managed by the primary team. 5. Chronic obstructive pulmonary disease (COPD). Patient continues on her chronic home oxygen and the usual bronchodilators. 6. Pericardial effusion. Patient has a moderate pericardial effusion on recent echocardiogram. She likely has underlying diastolic congestive heart failure. She was dialyzed on and Thursday and 3.5 liters of fluid were removed. Next dialysis will be on Thursday. Patient should be on a fluid restriction. There was no chamber collapse associated with the moderate size pericardial effusion.
[2021-08-31 12:58] VITALS: BP 102/56
[2021-08-31 16:31] VITALS: BP 98/52
[2021-08-31] MEDS: SERTRALINE 100 MG TAB PO SCH (19:53)
[2021-08-31 20:00] VITALS: BP 116/51
[2021-09-01] VITALS: BP 102/50
[2021-09-01] MEDS: IPRATROPIUM 0.5MG/ALBUTEROL 2.5MG INH SOL UD 3ML (DUONEB) NEB SCH ×4 (01:00→18:02)
[2021-09-01 04:00] VITALS: BP 99/46
[2021-09-01 04:51] LABS: HEMATOCRIT 35.8 % (36.0-47.0); HEMOGLOBIN 10.3 g/dl (12.0-15.5); MEAN CORPUSCULAR HGB CONC 28.8 g/dl (32.0-36.5); MEAN CORPUSCULAR VOLUME 111.2 fl (80.0-96.0); PLATELET COUNT, AUTOMATED 155 10^3/uL (150-450); RED BLOOD COUNT 3.22 10^6/uL (4.00-5.40); WHITE BLOOD COUNT 7.6 10^3/uL (4.0-10.0)
[2021-09-01 07:33] VITALS: BP 107/53
[2021-09-01] MEDS: DIGOXIN 0.25 MG TAB PO SCH (09:00)
[2021-09-01 09:25] LABS: ALBUMIN 2.3 GM/DL (3.2-5.2); BILIRUBIN,TOTAL 0.8 MG/DL (0.2-1.0); CREATININE FOR GFR 4.01 MG/DL (0.55-1.30); GLOMERULAR FILTRATION RATE 11.5 (>39)
[2021-09-01] MEDS: APIXABAN 2.5 MG TAB (ELIQUIS) PO SCH ×2 (09:43→20:44)
--- NOTE | 2021-09-01 10:34 | IPNPDOC ---
Text Note Date of Service The patient was seen on 09/01/21. NOTE Subjective: 76-year-old female presented from [facility] with primary concerns of shortness of breath and increased heart rate. She is a very poor historian and has clinically been deteriorating over the year. As per the family, she has required multiple admissions to hospitals as well as rehabs for various reasons that they were unaware of. The patient is unable to explain these. Seen and examined at bedside this morning. She reports improvement in her ab dominal pain, and reported overall feeling better. Review of systems: 10 point review of system was negative except for what is noted in the HPI Physical exam: General: Lying in bed, no acute distress Head/Neck/Throat: Trachea midline, mucous membranes moist Eyes: Sclera anicteric, no erythema or discharge appreciated bilaterally Thorax: Normal respiratory effort 3 L nasal cannula, bibasilar crackles appreciated bilaterally Cardiovascular: Normal rate, regular rhythm, normal S1, S2; no S3, S4, rubs/gallops/murmurs Abdomen: Bowel sounds present, soft, mild tenderness reported with palpation diffusely Genitourinary: No CVA tenderness, no Reddy in place Musculoskeletal: Moving all extremities on casual observation Skin: Warm, dry Neurologic: AAOx3, speech fluent and goal-directed, no focal deficits, grossly intact Labs: See below Imaging: Please see imaging section Assessment/plan: #Atrial fibrillation with rapid ventricular response -Resolved. C/w digoxin. Systemic anticoagulation with apixaban. -Follow-up on echocardiogram #Shortness of breath -Resolved. Likely secondary to her CHF exacerbation, missed dialysis; plan as below. -CTA of chest is negative for pe. #CHF exacerbation -Echocardiogram noted left ventricular ejection fraction of 70%. Likely induced by her tachyarrhythmia; dialysis as planned by nephrology team -Follow-up on echocardiogram #Abdominal pain -Likely due to underlying cirrhosis; and possible enterocolitis seen on ct. She is tolerating a diet, had some nausea and vomiting today. Symptomatic management with Zofran #ESRD -She got dialyzed on , nephrology following and will determine next dialysis session. #COPD -As per family, she is on baseline 2 to 3 L home oxygen. There was no wheezing appreciated on examination. Albuterol as needed low suspicion for COPD exacerbation at this time. #?CAD; HLD -This was reported in her med list problem sent from [facility]. However she is not on any antiplatelet therapy or statins once medications reconciled. #Depression/anxiety -Continue with sertraline #Dementia -Suspect this is advancing. Reorientation. #Deconditioned/osteopenia and OA -Severe osteoarthritis in the bilateral shoulders. Subacute to chronic fracture deformities of several bilateral anterolateral ribs. Kyphosis of the thoracic spine. Severe multilevel degenerative disease. Anterior wedge compression fractures of T4 and T5, likely chronic. Mild dextroscoliosis. -Check vit. d levels. DVT prophylaxis -Offered by apixaban Disposition: Pt can can be discharged back to [facility]. She will be made ALC status. VS,Fishbone, I+O VS, Fishbone, I+O Laboratory Tests 09/01/21 04:35 Vital Signs Date Time Temp Pulse Resp B/P (MAP) Pulse Ox O2 Delivery O2 Flow Rate FiO2 09/01/21 09:27 67 09/01/21 07:33 97.2 20 107/53 (71) 95 Nasal Cannula 3.0 I&O- Last 24 Hours up to 6 AM 09/01/21 05:59 Intake Total 300 ml Output Total 0 ml Balance 300 ml JOSE ANTONIO CHATMAN M.D. Sep 01, 2021 10:34
--- NOTE | 2021-09-01 14:17 | IPN ---
NEPHROLOGY PROGRESS NOTE DATE: 09/01/2021 SUBJECTIVE: Vianey is seen and examined this morning at the bedside. She offers no complaints. No palpitations. No shortness of breath. She is going to be dialyzed tomorrow. PHYSICAL EXAMINATION: VITAL SIGNS: Temperature 97.2, pulse 65, respiratory rate 20, blood pressure 107/53, saturating 95% on 3 liters nasal cannula. INTAKE AND OUTPUT: Weight in the bed scale today is 59.5 kg. GENERAL: Patient is seen lying in bed, elderly female, awake, alert and in no acute distress. HEENT: Tongue is moist. Jugular veins are mildly elevated. Neck is supple. Sclerae are anicteric. She seems comfortable on nasal cannula. HEART SOUNDS: Irregular. There is no peripheral edema. There is a fistula in the right arm, which is patent with thrill and bruit. LUNGS: There are diminished breath sounds. There are bibasilar crackles. NEUROLOGIC: She is oriented times three, conversational and cooperative. SKIN: Warm and dry. Normal temperature and turgor. extremities - fistula in right arm w/ thrill. no leg edema LABORATORY STUDIES: White count 7.6, hemoglobin 10.3, platelets 155. Sodium 138, potassium 5.0, bicarbonate 21, BUN 26, creatinine 4.0, phosphorus 5.0, magnesium 2.0, albumin 2.3. MICROBIOLOGY: Blood cultures: No growth for 72 hours times two sets. INPATIENT MEDICATIONS: Reviewed by myself and no changes noted over the past day. PROBLEMS: 1. End-stage renal disease on hemodialysis. Patient was dialyzed on and Thursday with 3.5 liters of fluid removed. Her next dialysis will be on Thursday. She has pericardial effusion along with pleural effusion and mild intersitial pulmonary edema on imaging earlier on this admission. Her volume status improved with two [id number] dialysis treatments and next treatment will be on Thursday. 2. Hyperkalemia. Potassium is 5.0 on blood work today. She was dialyzed on and Thursday. She is on a renal diet. Next dialysis will be on Thursday. 3. Chronic hypotension. She continues on midodrine. 4. Atrial fibrillation. She is on systemic anticoagulation with low dose Eliquis and on digoxin, which is managed by the primary team. 5. Chronic obstructive pulmonary disease (COPD). She continues on chronic home oxygen and the usual bronchodilators. [facility]
[2021-09-01 20:00] VITALS: BP 131/50
[2021-09-01] MEDS: SERTRALINE 100 MG TAB PO SCH (20:44)
[2021-09-01 23:15] VITALS: BP 111/44
[2021-09-02] MEDS: IPRATROPIUM 0.5MG/ALBUTEROL 2.5MG INH SOL UD 3ML (DUONEB) NEB SCH ×4 (02:08→19:15)
[2021-09-02 06:00] VITALS: BP 108/51
[2021-09-02] MEDS: APIXABAN 2.5 MG TAB (ELIQUIS) PO SCH ×2 (06:25→20:11)
[2021-09-02] MEDS: FAMOTIDINE 20 MG TAB PO SCH (06:25)
[2021-09-02] MEDS: DIGOXIN 0.25 MG TAB PO SCH (06:26)
[2021-09-02] MEDS: ACETAMINOPHEN TAB 650MG DOSE (2X325MG) PO PRN ×2 (06:31→20:11)
[2021-09-02] MEDS ORDERED: SODIUM CHLORIDE 0.9% 1000ML IV PRN (11:30)
[2021-09-02] MEDS ORDERED: LIDOCAINE 1% SDV 5ML VIAL SC PRN (11:30)
[2021-09-02] MEDS ORDERED: MIDODRINE 5 MG TAB PO ONE (12:15)
[2021-09-02] MEDS ORDERED: MIDODRINE 5 MG TAB PO SCH (12:30)
[2021-09-02] MEDS: MIDODRINE 5 MG TAB PO SCH (12:38)
--- NOTE | 2021-09-02 17:29 | IPN ---
PROGRESS NOTE DATE: 09/02/2021 SUBJECTIVE: Ms. Winters is seen and examined this morning at the bedside and later in the afternoon in the hemodialysis unit receiving a dialysis treatment. She continues to have chronic hypotension of hemodialysis and goal fluid removal was decreased from 2 liters down to 1.5 liters. She denies shortness of breath at rest and offers no complaints. No nausea. No vomiting. OBJECTIVE: VITAL SIGNS: Weight on the bed scale today was not recorded. GENERAL: Patient is seen in the morning at the beside and in the afternoon in the hemodialysis unit receiving her treatment. She is awake, alert and in no distress. HEENT: Extraocular muscles are intact. Tongue is moist. Sclera are anicteric. She is comfortable on nasal cannula. NECK: Jugular veins are mildly elevated. Neck is supple. HEART: Heart sounds are irregular. There is no peripheral edema. There is a fistula in the right arm which is patent and in use in the dialysis unit. LUNGS: Diminished breath sounds with faint bibasilar crackles. She is comfortable on nasal cannula. NEUROLOGIC: She is oriented to person, place and situation and moves extremities on command. SKIN: Warm and dry. Normal temperature and turgor. LABORATORY DATA: Laboratory studies yesterday with potassium of 5.0, bicarbonate 21, magnesium 2.0. There were no laboratory studies done today. INPATIENT MEDICATIONS: Reviewed by myself. She continues on Midodrine 5 mg three times a week (given on dialysis days) and I note she was given a dose today. Remainder of medications are unchanged. PROBLEMS: 1. Endstage renal disease on hemodialysis. Patient's last dialysis was on August 30. She is off of her usual maintenance schedule. Patient last week was dialyzed on and Thursday and she is being dialyzed today. Initially goal fluid removal was 2 liters because recent imaging showed pericardial effusion along with pleural effusion and mild pulmonary edema. However, patient has chronic hypotension of hemodialysis and the fluid removal goal was decreased to 1.5 liters because of soft blood pressures during dialysis. 2. Hyperkalemia. Potassium was 5.0 on blood work yesterday. She is being dialyzed with a 2.0 mEq potassium bath today. She continues on a renal diet. 3. Hypotension. Patient has hypotension of hemodialysis and does receive Midodrine pre-dialysis. 4. Atrial fibrillation. She is on systemic anticoagulation with low dose Eliquis and is also on low dose Digoxin for rate control. 5. COPD. She continues on her usual home oxygen. 6. Diastolic congestive heart failure. Echocardiogram on this admission noted with left ventricular ejection fraction of 70%. Patient was noted to have pleural effusion and pericardial effusion. Unfortunately, hypotension of hemodialysis makes aggressive fluid removal not an option. We are removing 1.5 liters as tolerated by her hemodynamics on this dialysis session and patient continues on Midodrine as well.
[2021-09-02] MEDS: traMADol 50 MG TAB PO PRN (20:10)
[2021-09-02] MEDS: SERTRALINE 100 MG TAB PO SCH (20:11)
[2021-09-03] MEDS: IPRATROPIUM 0.5MG/ALBUTEROL 2.5MG INH SOL UD 3ML (DUONEB) NEB SCH ×3 (02:00→13:05)
[2021-09-03 06:00] VITALS: BP 100/34
[2021-09-03] MEDS: ACETAMINOPHEN TAB 650MG DOSE (2X325MG) PO PRN (06:06)
--- NOTE | 2021-09-03 06:44 | IPNPDOC ---
Text Note Date of Service The patient was seen on 09/03/21. NOTE I was informed by the patient's RN that her BP dropped to 100/34 We will order 500ml bolus /f/u UA, lactic acid, blood cx and morning labs. I will also ask the day time team to f/u on the results. VS,Fishbone, I+O VS, Fishbone, I+O Vital Signs Date Time Temp Pulse Resp B/P (MAP) Pulse Ox O2 Delivery O2 Flow Rate FiO2 09/03/21 06:00 97.8 64 16 100/34 (56) 100 Nasal Cannula 3.0 I&O- Last 24 Hours up to 6 AM 09/03/21 06:00 Intake Total 200 ml Output Total 1000 ml Balance -800 ml TRANG ANGLIN MD Sep 03, 2021 06:44
[2021-09-03] MEDS ORDERED: NS 500 ML IV ONE ×2 (06:45→16:05)
[2021-09-03 08:30] VITALS: BP 99/36
[2021-09-03] MEDS: APIXABAN 2.5 MG TAB (ELIQUIS) PO SCH ×2 (09:54→21:16)
[2021-09-03] MEDS: MIDODRINE 5 MG TAB PO SCH ×2 (09:54→15:47)
[2021-09-03] MEDS: DIGOXIN 0.25 MG TAB PO SCH (09:55)
[2021-09-03] MEDS: traMADol 50 MG TAB PO PRN (10:02)
[2021-09-03 10:07] LABS: BASO % 0.2 % (0.0-1.0); EOS % 0.3 % (0.0-3.0); HEMATOCRIT 37.8 % (36.0-47.0); HEMOGLOBIN 10.9 g/dl (12.0-15.5); LYMPH # 0.8 10^3/uL (1.5-5.0); LYMPH % 6.8 % (24.0-44.0); MEAN CORPUSCULAR HGB CONC 28.8 g/dl (32.0-36.5); MEAN CORPUSCULAR VOLUME 110.9 fl (80.0-96.0); MONO % 8.1 % (2.0-8.0); NEUTROPHILS % 83.9 % (36.0-66.0); PLATELET COUNT, AUTOMATED 147 10^3/uL (150-450); RED BLOOD COUNT 3.41 10^6/uL (4.00-5.40); WHITE BLOOD COUNT 11.9 10^3/uL (4.0-10.0)
[2021-09-03 10:30] LABS: ALBUMIN 2.4 GM/DL (3.2-5.2); BILIRUBIN,TOTAL 0.9 MG/DL (0.2-1.0); CALCIUM LEVEL 8.8 MG/DL (8.8-10.2); CREATININE FOR GFR 3.04 MG/DL (0.55-1.30); GLOMERULAR FILTRATION RATE 15.9 (>39); POTASSIUM SERUM 4.1 MEQ/L (3.5-5.1); TOTAL PROTEIN 6.8 GM/DL (6.4-8.2)
[2021-09-03] MEDS: COMBIVENT RESPIMAT 100-20MCG INHALER 4GM INH SCH ×2 (13:29→19:25)
[2021-09-03] MEDS ORDERED: ONDANSETRON 4 MG TAB PO PRN (14:50)
[2021-09-03] MEDS: ONDANSETRON 4MG/2ML VIAL IV PRN (15:57)
[2021-09-03 16:02] VITALS: BP 106/30
[2021-09-03] MEDS: SERTRALINE 100 MG TAB PO SCH (21:16)
[2021-09-04] MEDS: COMBIVENT RESPIMAT 100-20MCG INHALER 4GM INH SCH ×4 (02:00→20:31)
[2021-09-04 06:00] VITALS: BP 106/46
[2021-09-04] MEDS: APIXABAN 2.5 MG TAB (ELIQUIS) PO SCH ×2 (06:22→20:12)
[2021-09-04] MEDS: FAMOTIDINE 20 MG TAB PO SCH (06:24)
[2021-09-04] MEDS: DIGOXIN 0.25 MG TAB PO SCH (06:24)
[2021-09-04 06:34] LABS: BASO % 0.2 % (0.0-1.0); EOS # 0.1 10^3/uL (0.0-0.5); EOS % 0.5 % (0.0-3.0); HEMATOCRIT 36.1 % (36.0-47.0); HEMOGLOBIN 10.4 g/dl (12.0-15.5); LYMPH # 1.2 10^3/uL (1.5-5.0); LYMPH % 9.2 % (24.0-44.0); MEAN CORPUSCULAR HEMOGLOBIN 32.2 pg (27.0-33.0); MEAN CORPUSCULAR HGB CONC 28.8 g/dl (32.0-36.5); MEAN CORPUSCULAR VOLUME 111.8 fl (80.0-96.0); MONO # 1.1 10^3/uL (0.0-0.8); MONO % 8.8 % (2.0-8.0); NEUTROPHILS # 10.3 10^3/uL (1.5-8.5); NEUTROPHILS % 80.6 % (36.0-66.0); PLATELET COUNT, AUTOMATED 154 10^3/uL (150-450); RED BLOOD COUNT 3.23 10^6/uL (4.00-5.40); WHITE BLOOD COUNT 12.8 10^3/uL (4.0-10.0)
[2021-09-04 06:53] LABS: CREATININE FOR GFR 3.9 MG/DL (0.55-1.30); GLOMERULAR FILTRATION RATE 11.9 (>39); POTASSIUM SERUM 4.6 MEQ/L (3.5-5.1)
[2021-09-04 06:54] LABS: MAGNESIUM LEVEL 2.5 MG/DL (1.8-2.4)
[2021-09-04] MEDS ORDERED: LIDOCAINE 1% SDV 5ML VIAL SC PRN (07:30)
[2021-09-04] MEDS ORDERED: SODIUM CHLORIDE 0.9% 1000ML IV PRN (07:30)
[2021-09-04] MEDS: MIDODRINE 5 MG TAB PO SCH ×2 (08:47→15:42)
[2021-09-04] MEDS: ACETAMINOPHEN TAB 650MG DOSE (2X325MG) PO PRN ×2 (08:48→15:43)
--- NOTE | 2021-09-04 09:33 | REP ---
INDICATION: chf re-eval. COMPARISON: 08/28/2021. TECHNIQUE: Single portable AP view of the chest was performed. FINDINGS: Cardiomegaly is again noted. There is vascular congestion. There are bibasilar infiltrates and effusions again seen, possibly mildly increased since the prior study. Multiple metallic clips are again seen in the upper abdomen. IMPRESSION: Cardiomegaly and vascular congestion. Possible mild increase in bibasilar infiltrates and effusions. <Electronically signed by Rob Vallejo > 09/04/21 0915
[2021-09-04] MEDS: ONDANSETRON 4MG/2ML VIAL IV PRN (15:42)
--- NOTE | 2021-09-04 19:27 | IPN ---
PROGRESS NOTE DATE: 09/04/2021 SUBJECTIVE: Vianey is seen and examined this morning at the bedside and later in the afternoon in the hemodialysis receiving her treatment. Since her last dialysis on Thursday she has been bolused 500 mL of normal saline on two occasions because of asymptomatic chronic hypotension. Patient is already in fluid overload with pericardial and pleural effusion. She complains of increased shortness of breath. Unfortunately she has significant hypotension of hemodialysis, which makes fluid removal very challenging, and I discussed with hospitalist service regarding holding off on giving intravenous (IV) fluids for this patient for her asymptomatic and chronic hypotension. Her dialysis treatment today is uneventful, and we were only able to remove 1 liter of fluid because of chronically low blood pressures. VITAL SIGNS: Temperature 98.1, pulse 80, respiratory rate 17, blood pressure 106/46, saturating 93% on 3 liters nasal cannula. Intake yesterday was 1.6 liters, of which 1 liter of IV fluid and 600 mL was oral. Dialysis today removed 1 liter. GENERAL: Patient is seen in the morning at the bedside sitting in a chair eating breakfast and later in the afternoon receiving hemodialysis. She is awake, alert, oriented, comfortable in no apparent distress. Extraocular muscles are intact. Jugular veins are elevated. Tongue is moist. HEART: Sounds are irregular. There is no peripheral edema. LUNGS: Show diminished breath sounds with crackles. There is no accessory muscle use nor tachypnea. ABDOMEN: Soft, obese, and nontender. EXTREMITIES: Show no edema. There is a fistula in the right arm, which is in use. NEUROLOGIC: She is oriented times three, at baseline mentation. LABORATORY DATA: White count 12.8, hemoglobin 10.4, platelets 154. Sodium 137, potassium 4.6, bicarbonate 30, BUN 28, creatinine 3.9. INPATIENT MEDICATIONS: Reviewed by myself, and no changes except for midodrine being increased to 5 mg twice a day. PROBLEMS: 1. End-stage renal disease, on hemodialysis on a Thursday, , Thursday schedule as an outpatient. Patient is off of her maintenance schedule since she has been hospitalized. She has chronic hypotension, and she also has hypotension of hemodialysis. We have difficulty removing fluid because of significant hypotension during her dialysis treatments. Only 1 liter of fluid was removed today. Patient has fluid overload on exam and is not suitable for IV fluid for her chronic asymptomatic hypotension. 2. Chronic hypotension. Patient is now on midodrine 5 mg twice a day. She was given IV fluid, a total of 1 liter, since her last dialysis treatment because of chronically low blood pressures. Please hold off on giving any further fluid to this patient for her asymptomatic hypotension. 3. Pericardial effusion and pleural effusion and diastolic congestive heart failure. Unfortunately, hypotension of hemodialysis makes aggressive fluid removal not an option. We removed 1 liter of fluid today. Patient continues on midodrine as well. Most recent chest x-ray shows vascular congestion and effusion. On her next dialysis treatment we can try albumin to see if we can get more fluid off that way. Please hold off on giving this patient IV fluid. 4. Anemia of chronic kidney disease. Hemoglobin is at goal, and no specific intervention is needed at present.
[2021-09-04] MEDS: SERTRALINE 100 MG TAB PO SCH (20:13)
[2021-09-05] MEDS: COMBIVENT RESPIMAT 100-20MCG INHALER 4GM INH SCH ×4 (02:00→19:51)
[2021-09-05 06:00] VITALS: BP 88/40
[2021-09-05] MEDS: MIDODRINE 5 MG TAB PO SCH ×2 (06:52→18:02)
[2021-09-05] MEDS: APIXABAN 2.5 MG TAB (ELIQUIS) PO SCH ×2 (09:10→21:00)
[2021-09-05] MEDS: DIGOXIN 0.25 MG TAB PO SCH (09:12)
[2021-09-05] MEDS ORDERED: MIDODRINE 5 MG TAB PO STA (11:12)
[2021-09-05 11:19] VITALS: BP_SYST 74
[2021-09-05] MEDS ORDERED: VANCOMYCIN HCL 750 MG, VIAL MATE ADAPTER 1 EACH in NS 250 ML IV SCH (11:25)
[2021-09-05 11:56] LABS: BASO % 0.2 % (0.0-1.0); EOS % 0.1 % (0.0-3.0); HEMATOCRIT 39.5 % (36.0-47.0); HEMOGLOBIN 11.4 g/dl (12.0-15.5); LYMPH # 0.9 10^3/uL (1.5-5.0); LYMPH % 6.4 % (24.0-44.0); MEAN CORPUSCULAR HEMOGLOBIN 31.8 pg (27.0-33.0); MEAN CORPUSCULAR HGB CONC 28.9 g/dl (32.0-36.5); MEAN CORPUSCULAR VOLUME 110.3 fl (80.0-96.0); MONO # 1.5 10^3/uL (0.0-0.8); MONO % 9.8 % (2.0-8.0); NEUTROPHILS # 12.2 10^3/uL (1.5-8.5); NEUTROPHILS % 82.2 % (36.0-66.0); PLATELET COUNT, AUTOMATED 182 10^3/uL (150-450); RED BLOOD COUNT 3.58 10^6/uL (4.00-5.40); WHITE BLOOD COUNT 14.8 10^3/uL (4.0-10.0)
[2021-09-05] MEDS ORDERED: MEROPENEM INJ 1 GM in IV 1 EA IV ONE (12:00)
[2021-09-05 12:23] LABS: ALBUMIN 2.5 GM/DL (3.2-5.2); BILIRUBIN,TOTAL 1.1 MG/DL (0.2-1.0); CALCIUM LEVEL 9.4 MG/DL (8.8-10.2); CREATININE FOR GFR 2.54 MG/DL (0.55-1.30); GLOMERULAR FILTRATION RATE 19.5 (>39); POTASSIUM SERUM 4.5 MEQ/L (3.5-5.1); TOTAL PROTEIN 7.1 GM/DL (6.4-8.2)
--- NOTE | 2021-09-05 12:26 | REP ---
INDICATION: leukocytosis, hypotension. COMPARISON: 09/04/2021. TECHNIQUE: Single portable AP view of the chest was performed. FINDINGS: Cardiomegaly is again noted. Bibasilar infiltrates and effusions have not significantly changed. Multiple metallic clips are again seen in the left upper quadrant of the abdomen. IMPRESSION: Stable appearing bibasilar infiltrates and effusions. <Electronically signed by Rob Vallejo > 09/05/21 1223
[2021-09-05] MEDS ORDERED: VANCOMYCIN HCL 750 MG, VIAL MATE ADAPTER 1 EACH in NS 250 ML IV ONE (13:00)
[2021-09-05] MEDS ORDERED: VANCOMYCIN HCL 500 MG in D5W MINI-BAG PLUS 100 ML IV ONE (14:00)
[2021-09-05 14:21] VITALS: BP 86/42
[2021-09-05] MEDS: SERTRALINE 100 MG TAB PO SCH (21:00)
--- NOTE | 2021-09-05 21:21 | IPNPDOC ---
Subjective Date Seen The patient was seen on 09/05/21. Subjective Chief Complaint/HPI Mrs. Downing is a 76 year old female who is here from [facility] for heart failure and atrial fibrillation with RVR. Patient was medically stabilized on 09/01/2021 and made ALC. Over the past few days, I have been notified about patient's low blood pressure. Patient had a few boluses of fluid, but imaging demonstrates patient is fluid overloaded. Nephrology started patient on Midodrine to help with BP. Otherwise, patient started to have leukocytosis. Infectious work up started and patient put on empiric antibiotics. When I saw patient, she mainly complained of back pain. Denied chest pain or dyspnea. Otherwise, patient was exposed to person positive for COVID. She is on COVID precautions until 09/09/21 Objective Physical Examination General Exam: Positive: Alert, Cooperative Eye Exam: Negative: Sclera icteric Chest Exam: Positive: Rhonchi, Diminished Heart Exam: Positive: Rate Normal, Irregular Rhythm Abdomen Exam: Positive: Normal bowel sounds, Soft; Negative: Tenderness Extremity Exam: Negative: Edema Neuro Exam: Positive: Normal Speech Psych Exam: Positive: Mental status NL, Mood NL Assessment /Plan Assessment Mrs. Downing is a 76 year old female who is here from [facility] for heart failure and atrial fibrillation with RVR. Patient was medically stabil ized on 09/01/2021 and made ALC. Over the past few days, patient was given fluid boluses for low blood pressure. Patient's leukocytosis has increased. Started infectious work up and empiric antibiotics. Plan/VTE VTE Prophylaxis Ordered?: Yes Plan 1. Hypotension -Patient chronically has low blood pressure. Currently on midodrine -Difficult to dialyze fluid off -Possibly infection causing low blood pressure -Procalcitonin elevated at 1 -CXR demonstrates stable infiltrates -Empirically on Meropenem and Vancomycin due to allergies to PCN -Antibiotic day 1 2. Atrial fibrillation with RVR -RVR resolved -Continue digoxin (unable to tolerate beta barbara due to hypotension) -Continue Eliquis 3. CHF exacerbation -Fluid balance by dialysis -Nephrology following, recommendations appreciated 4. ESRD on dialysis -Nephrology following, recommendations appreciated 5. COPD -On 2 to 3 L at baseline -Continue albuterol as needed 6. Depression/anxiety -Continue sertraline 7. Dementia -Supportive care -Reorientation 8. DVT ppx -Continue apixaban Disposition: Pending clinical improvement. Patient will be in COVID quarantine until 09/09/21. VS, I&O, 24H, Fishbone Vital Signs/I&O Vital Signs Date Time Temp Pulse Resp B/P (MAP) Pulse Ox O2 Delivery O2 Flow Rate FiO2 09/05/21 14:21 86/42 (57) 09/05/21 09:12 60 09/05/21 09:00 3.0 09/05/21 06:00 97.4 16 97 Nasal Cannula I&O- Last 24 Hours up to 6 AM 09/05/21 05:59 Intake Total 180 ml Output Total 1000 ml Balance -820 ml Laboratory Data 24H LABS Laboratory Tests 2 09/05/21 11:32: Immature Granulocyte % (Auto) 1.3, Neutrophils (%) (Auto) 82.2H, Lymphocytes (%) (Auto) 6.4L, Monocytes (%) (Auto) 9.8H, Eosinophils (%) (Auto) 0.1, Basophils (%) (Auto) 0.2, Neutrophils # (Auto) 12.2H, Lymphocytes # (Auto) 0.9L, Monocytes # (Auto) 1.5H, Eosinophils # (Auto) 0.0, Basophils # (Auto) 0.0, Nucleated Red Blood Cells % (auto) 0.0, Anion Gap 8, Glomerular Filtration Rate 19.5L, Calcium Level 9.4, Total Bilirubin 1.1H, Aspartate Amino Transf (AST/SGOT) 35, Alanine Aminotransferase (ALT/SGPT) 15, Alkaline Phosphatase 102, Total Protein 7.1, Albumin 2.5L, Albumin/Globulin Ratio 0.5L, Procalcitonin 1.01 09/05/21 12:58: Methicillin-Resist S.aureus DNA PCR DETECTEDA CBC/BMP Laboratory Tests 09/05/21 11:32 Microbiology Microbiology 09/05/21 Blood Culture, Received Pending 09/05/21 Blood Culture, Received Pending 09/03/21 Blood Culture - Preliminary, Resulted No Growth after 48 hours. All Specime... 08/28/21 Blood Culture - Final, Complete NO GROWTH AFTER 5 DAYS 08/28/21 Blood Culture - Final, Complete NO GROWTH AFTER 5 DAYS TAYLOR PUENTE DO Sep 05, 2021 21:21
--- NOTE | 2021-09-05 22:07 | IPNPDOC ---
Text Note Date of Service Significant event NOTE Notified patient has been refusing medications and vital sign checks. Patient has had low running blood pressure today and is status post midodrine. Patient with frustration and history of dementia she describes "I am done" in regards to vital sign attempt and when attempting to admin evening medications. She was educated on the risks and consequences of not having vital signs checked and missing doses of her medications by staff. Patient would benefit from further goals of discussion care if she continues to refuse medications and interventions. Contacted patient's next of kin, her sister, and notified regarding patient's current behaviors and the risk if she continues to decline medications and interventions. Patient sister reports that patient does have episodes of refusing medications and interventions at the [facility] where she resides. She alludes to these times as when patient may feel overwhelmed and her refusing may be attempt for patient to have sense of control. She verbalized she will attempt to encourage patient with treatment plan tomorrow and she was made aware regarding if patient continues to refuse that there would be ongoing goals of care discussion since pt is FULL code presently. We will continue to monitor and encourage patient to express self and encourage explanation of careplan for compliance. VS,Fishbone, I+O VS, Fishbone, I+O Laboratory Tests 09/05/21 11:32 Vital Signs Date Time Temp Pulse Resp B/P (MAP) Pulse Ox O2 Delivery O2 Flow Rate FiO2 09/05/21 14:21 86/42 (57) 09/05/21 09:12 60 09/05/21 09:00 3.0 09/05/21 06:00 97.4 16 97 Nasal Cannula I&O- Last 24 Hours up to 6 AM 09/05/21 06:00 Intake Total 180 ml Output Total 1000 ml Balance -820 ml NAOMI MANUEL NP Sep 05, 2021 21:56
[2021-09-06] VITALS (8 sets, daily range): BP systolic 78–102; BP diastolic 40–56
[2021-09-06] MEDS: ACETAMINOPHEN TAB 650MG DOSE (2X325MG) PO PRN ×2 (00:46→21:04)
[2021-09-06] MEDS: COMBIVENT RESPIMAT 100-20MCG INHALER 4GM INH SCH ×4 (02:00→21:10)
[2021-09-06] MEDS: APIXABAN 2.5 MG TAB (ELIQUIS) PO SCH ×2 (06:06→21:04)
[2021-09-06] MEDS: DIGOXIN 0.25 MG TAB PO SCH (06:06)
[2021-09-06] MEDS: FAMOTIDINE 20 MG TAB PO SCH (06:06)
[2021-09-06 06:12] LABS: HEMATOCRIT 33.7 % (36.0-47.0); HEMOGLOBIN 10.2 g/dl (12.0-15.5); MEAN CORPUSCULAR HEMOGLOBIN 32.4 pg (27.0-33.0); MEAN CORPUSCULAR HGB CONC 30.3 g/dl (32.0-36.5); PLATELET COUNT, AUTOMATED 159 10^3/uL (150-450); RED BLOOD COUNT 3.15 10^6/uL (4.00-5.40); WHITE BLOOD COUNT 15.6 10^3/uL (4.0-10.0)
[2021-09-06 06:33] LABS: C REACTIVE PROTEIN QUANTITATIV 10.6 MG/DL (0.00-0.30); CALCIUM LEVEL 9.1 MG/DL (8.8-10.2); CREATININE FOR GFR 3.4 MG/DL (0.55-1.30); GLOMERULAR FILTRATION RATE 13.9 (>39); POTASSIUM SERUM 4.3 MEQ/L (3.5-5.1)
[2021-09-06 06:35] LABS: ERYTHROCYTE SEDIMENTATION RATE 22 mm/hr (0-30)
[2021-09-06] MEDS: MIDODRINE 5 MG TAB PO SCH ×3 (08:40→17:36)
[2021-09-06] MEDS: CALCITRIOL 0.25 MCG CAP (S0169) PO SCH (08:40)
[2021-09-06] MEDS ORDERED: SODIUM CHLORIDE 0.9% 1000ML IV PRN (09:20)
[2021-09-06] MEDS ORDERED: LIDOCAINE 1% SDV 5ML VIAL SC PRN (09:20)
[2021-09-06] MEDS ORDERED: DARBEPOETIN 100 MCG/0.5 ML *DIALYSIS* SYRINGE (J0882) IV SCH (11:40)
--- NOTE | 2021-09-06 13:29 | IPN ---
PROGRESS NOTE DATE: 09/06/2021 SUBJECTIVE: Ms. Downing is seen and examined this morning at the bedside. She is only oriented to person. She thinks she is in [place]. She thinks the holiday coming up is Easter. Blood pressures remain chronically low. The patient's white count has increased from 7.6 on September 01 up to 15.6 today. Primary team started her on Vancomycin and Meropenem. Repeat blood cultures drawn yesterday are pending. I increased her Midodrine to 5 mg three times a day. She has had poor oral intake. She is being dialyzed today for clearance only without any fluid removal. I spoke to her niece Caterina Li and her sister Ann Li and obtained consent to give albumin with dialysis today. The patient reports no change in her chronic shortness of breath. OBJECTIVE: VITAL SIGNS: Temperature 96.9, pulse 56, respiratory rate 16, blood pressure 88/56, saturating 95% on 2 liters nasal cannula. Weight in the bed scale today is not recorded. GENERAL: The patient was seen in the morning at the bedside and then later on in the hemodialysis unit. She is only oriented to self but she does follow simple commands and moves extremities on command, makes eye contact. HEENT: Tongue is moist. NECK: Supple. Jugular veins are mildly elevated. HEART: Sounds are bradycardic, S1, S2 and irregular. LUNGS: Show diminished breath sounds with bibasilar crackle but no accessory muscle use, no tachypnea. She is comfortable on nasal cannula. ABDOMEN: Soft, obese, and nontender. EXTREMITIES: There is a fistula in the right arm, which is presently in use. Extremities show no edema. LABS: White count 15.6, hemoglobin 10.2, platelets 159. Sodium 135, potassium 4.2, bicarbonate 29, BUN 28, creatinine 3.4. Calcium 9.1. CRP 10.6. Blood cultures are pending. Chest x-ray done yesterday shows pleural effusions bilaterally. INPATIENT MEDICATIONS: I increased her Midodrine to 5 mg twice a day. She is also on Meropenem and Vancomycin through the primary team. Remainder of medications are unchanged as compared to yesterday. PROBLEMS: 1. End-stage renal disease, on hemodialysis. The patient has chronic underlying hypotension and she also has hypotension of hemodialysis which complicates her treatments and does not allow for any aggressive fluid removal. She has bilateral pleural effusions. She also has pericardial effusion. However, the patient has also had increase in white count and poor oral intake and increasing confusion. Today I am dialyzing her for clearance only without any fluid removal and we will give her albumin with her dialysis treatment to help preserve hemodynamic stability. 2. [id number] hypotension. Patient is on Midodrine and I increased the dose to Midodrine 5 mg three times a day. She has a rising white count. She is on Vancomycin and Meropenem started by the primary team yesterday. Repeat blood cultures are pending. Today she is going to be dialyzed for clearance only without any fluid removal and she was given albumin for blood pressure support. 3. Anemia of chronic kidney disease. Hemoglobin is 10.2 on the latest labs which is optimal and Aranesp is continued. 4. Protein calorie malnutrition/albuminemia. Given the patient's hypotension of hemodialysis albumin was ordered with today's treatment and consent was obtained from her sister, Ann Li and nichay Li over the phone. 5. Atrial fibrillation. The patient is intermittently bradycardic. She is on Digoxin managed by the primary team. Typically dialysis patients are not on daily Digoxin dosing and I suggest cutting back and I defer to the primary service. She is also on low dose Eliquis anticoagulation. 6. Pericardial effusion and pleural effusion in the setting of diastolic congestive heart failure. Unfortunately, hypotension of hemodialysis makes aggressive fluid removal not an option and at present time patient has been increasingly confused with rising white count and minimal oral intake. Hence, today she is only being dialyzed for clearance without any fluid removal and she is going to receive albumin for blood pressure support.
[2021-09-06] MEDS ORDERED: VANCOMYCIN HCL 1,000 MG, VIAL MATE ADAPTER 1 EACH in NS 250 ML IV SCH (16:00)
[2021-09-06] MEDS: **VANCO AFTER HD** MISC XX SCH (16:00)
[2021-09-06] MEDS: MEROPENEM INJ 1 GM in IV 1 EA IV SCH (16:47)
[2021-09-06] MEDS: SERTRALINE 100 MG TAB PO SCH (21:04)
[2021-09-07] MEDS: COMBIVENT RESPIMAT 100-20MCG INHALER 4GM INH SCH ×4 (02:00→21:13)
[2021-09-07 06:00] VITALS: BP 99/49
[2021-09-07 06:46] LABS: HEMATOCRIT 35.2 % (36.0-47.0); HEMOGLOBIN 10.3 g/dl (12.0-15.5); MEAN CORPUSCULAR HEMOGLOBIN 32.5 pg (27.0-33.0); MEAN CORPUSCULAR HGB CONC 29.3 g/dl (32.0-36.5); PLATELET COUNT, AUTOMATED 169 10^3/uL (150-450); RED BLOOD COUNT 3.17 10^6/uL (4.00-5.40); WHITE BLOOD COUNT 13.2 10^3/uL (4.0-10.0)
[2021-09-07 07:13] LABS: CREATININE FOR GFR 2.15 MG/DL (0.55-1.30); GLOMERULAR FILTRATION RATE 23.7 (>39); POTASSIUM SERUM 4.6 MEQ/L (3.5-5.1)
[2021-09-07] MEDS: APIXABAN 2.5 MG TAB (ELIQUIS) PO SCH ×2 (09:38→20:47)
[2021-09-07] MEDS: MIDODRINE 5 MG TAB PO SCH ×3 (09:38→16:10)
[2021-09-07] MEDS: DIGOXIN 0.25 MG TAB PO SCH (09:41)
[2021-09-07] MEDS: ACETAMINOPHEN TAB 650MG DOSE (2X325MG) PO PRN ×2 (10:00→20:48)
--- NOTE | 2021-09-07 11:35 | IPNPDOC ---
Subjective Date Seen The patient was seen on 09/07/21. Subjective Chief Complaint/HPI SUBJECTIVE: Patient was seen and examined this morning at bedside. Overnight it was noted that patient continues to be confused although she does have a component of baseline dementia. It was noted that she refused her meds as well as vital sign checks per night hospitalist team update. She received hemodialysis yesterday and today she seems to be more alert and oriented than yesterday. She states that she has been eating more and ate all of her breakfast. Denies any increase shortness of breathOr increased lower extremity edema that deviates from her baseline. OBJECTIVE: VS:SEE BELOW GENERAL: The patient was seen in the morning and more alert and oriented today than yesterday. HEENT: Head is normocephalic, atraumatic. Moist mucous members. NECK: Supple. Jugular veins are mildly elevated. HEART: Sounds are bradycardic, S1, S2 and irregular. LUNGS: Show diminished breath sounds with bibasilar crackle but no accessory muscle use, no tachypnea. She is comfortable on nasal cannula. ABDOMEN: Soft, obese, and nontender. EXTREMITIES: There is a fistula in the right arm, which is presently in use. IMPRESSION AND PLAN: 1. End-stage renal disease, on hemodialysis. The patient has chronic underlying hypotension and she also has hypotension of hemodialysis which complicates her treatments and does not allow for any aggressive fluid removal. She has bilateral pleural effusions. She also has pericardial effusion. However, the patient has also had increase in white count and poor oral intake and increasing confusion. She was dialyzed yesterday without any fluid removal with IV albumin given with her dialysis treatment to help preserve her hemodynamic stability. 2. Aimhb-wz-zstlvvh hypotension. Patient is on Midodrine has been increased to 5 mg 3 times daily. Increased the dose to Midodrine 5 mg three times a day. Her white count improved from yesterday and she continues on Vanco meropenem per primary team. Repeat blood cultures did not show any growth thus far. Next dialysis potentially on Thursday. 3. Anemia of chronic kidney disease. Hemoglobin is 10.3 on the latest labs which is optimal and Aranesp is continued. 4. Protein calorie malnutrition/albuminemia. Given the patient's hypotension of hemodialysis albumin was ordered with today's treatment and consent was obtained from her sister, Ann Li and refugio Li over the phone. 5. Atrial fibrillation. The patient is intermittently bradycardic. She is on Digoxin managed by the primary team. Typically dialysis patients are not on daily Digoxin dosing and I suggest cutting back and I defer to the primary service. She is also on low dose Eliquis anticoagulation. 6. Pericardial effusion and pleural effusion in the setting of heart failure with preserved ejection fraction. Unfortunately, hypotension of hemodialysis makes aggressive fluid removal not an option and at present time patient has been increasingly confused with rising white count and minimal oral intake. Hence, today she is only being dialyzed for clearance without any fluid removal and she is going to receive albumin for blood pressure support. VS, I&O, 24H, Fishbone Vital Signs/I&O Vital Signs Date Time Temp Pulse Resp B/P (MAP) Pulse Ox O2 Delivery O2 Flow Rate FiO2 09/07/21 09:41 68 09/07/21 06:00 97.5 16 99/49 (66) 91 Nasal Cannula 2.0 I&O- Last 24 Hours up to 6 AM 09/07/21 06:00 Intake Total 270.0 ml Output Total 200 ml Balance 70.0 ml Laboratory Data 24H LABS Laboratory Tests 2 09/07/21 05:50: Nucleated Red Blood Cells % (auto) 0.2H, Anion Gap 8, Glomerular Filtration Rate 23.7L, Calcium Level 10.0 CBC/BMP Laboratory Tests 09/07/21 05:50 Microbiology Microbiology 09/05/21 Blood Culture - Preliminary, Resulted No growth after 24 hours . All specim... 09/05/21 Blood Culture - Preliminary, Resulted No growth after 24 hours . All specim... 09/03/21 Blood Culture - Preliminary, Resulted No Growth after 72 hours. All specime... 08/28/21 Blood Culture - Final, Complete NO GROWTH AFTER 5 DAYS 08/28/21 Blood Culture - Final, Complete NO GROWTH AFTER 5 DAYS GME ATTESTATION GME ATTESTATION My faculty preceptor for this patient encounter was physically present during the encounter and was fully available. All aspects of the patient interview, examination, medical decision making process, and medical care plan development were reviewed and approved by the faculty preceptor. The faculty preceptor is aware and concurs with the plan as stated in the body of this note and will attest to such by his/her cosignature. Soo Santacruz DO Sep 07, 2021 11:35
[2021-09-07 14:00] VITALS: BP 100/50
[2021-09-07] MEDS: **VANCO AFTER HD** MISC XX SCH (16:00)
[2021-09-07] MEDS: MEROPENEM INJ 1 GM in IV 1 EA IV SCH (16:10)
[2021-09-07] MEDS: SERTRALINE 100 MG TAB PO SCH (20:47)
[2021-09-07 22:00] VITALS: BP 99/46
[2021-09-08] MEDS: COMBIVENT RESPIMAT 100-20MCG INHALER 4GM INH SCH ×4 (02:00→20:45)
[2021-09-08] MEDS: ACETAMINOPHEN TAB 650MG DOSE (2X325MG) PO PRN ×2 (04:08→09:55)
[2021-09-08 06:00] VITALS: BP 99/47
[2021-09-08 06:02] LABS: HEMATOCRIT 37.2 % (36.0-47.0); HEMOGLOBIN 10.7 g/dl (12.0-15.5); MEAN CORPUSCULAR HEMOGLOBIN 31.9 pg (27.0-33.0); MEAN CORPUSCULAR HGB CONC 28.8 g/dl (32.0-36.5); PLATELET COUNT, AUTOMATED 170 10^3/uL (150-450); RED BLOOD COUNT 3.35 10^6/uL (4.00-5.40); WHITE BLOOD COUNT 13.5 10^3/uL (4.0-10.0)
[2021-09-08 06:18] LABS: CALCIUM LEVEL 9.7 MG/DL (8.8-10.2); CREATININE FOR GFR 3.47 MG/DL (0.55-1.30); GLOMERULAR FILTRATION RATE 13.6 (>39); POTASSIUM SERUM 4.4 MEQ/L (3.5-5.1)
[2021-09-08] MEDS: FAMOTIDINE 20 MG TAB PO SCH (08:23)
[2021-09-08] MEDS: MIDODRINE 5 MG TAB PO SCH ×3 (08:23→16:54)
[2021-09-08] MEDS: APIXABAN 2.5 MG TAB (ELIQUIS) PO SCH ×2 (08:24→22:43)
[2021-09-08] MEDS: DIGOXIN 0.25 MG TAB PO SCH (08:27)
[2021-09-08] MEDS: DOCUSATE SODIUM 100MG CAPSULE PO SCH ×2 (09:00→22:43)
[2021-09-08] MEDS: traMADol 50 MG TAB PO PRN ×2 (11:32→16:54)
[2021-09-08] MEDS ORDERED: MIRALAX *UNIT DOSE* 17GM PACKET PO PRN (12:15)
[2021-09-08 14:00] VITALS: BP 90/45
[2021-09-08] MEDS: **VANCO AFTER HD** MISC XX SCH (16:00)
[2021-09-08] MEDS: MEROPENEM INJ 1 GM in IV 1 EA IV SCH (16:51)
--- NOTE | 2021-09-08 20:55 | IPN ---
NEPHROLOGY PROGRESS NOTE DATE: 09/08/2021 SUBJECTIVE: Miss Downing is seen this morning at her bedside. She is laying in her bed without any acute distress. She is aware that she is in the hospital, however she could not recall what she had for breakfast. She was able to tell me that she lives in [place], however could not tell me where she used to get her chronic dialysis. OBJECTIVE: PHYSICAL EXAMINATION: VITAL SIGNS: Temperature is 97 degrees Fahrenheit, heart rate 76 per minute and respiratory rate 18 per minute. Blood pressure 99/47 mm of mercury and oxygen saturation is 82% on 2 liters oxygen. HEENT: Her head is atraumatic. Oral mucosa is dry. NECK: Supple and without JVD or thyroid enlargement. HEART: Sounds are irregular. LUNGS: Mostly clear. ABDOMEN: Soft and nontender and bowel sounds are normal. EXTREMITIES: Without any cyanosis or clubbing. NEUROLOGICAL: She is somewhat confused and not fully oriented. LABORATORY STUDIES: Today's labs show a white blood cell count of 13.5, hemoglobin 10.7 and hematocrit 37.2. Sodium 139, potassium 4.4, CO2 27, BUN 26 and creatinine 3.47. Glucose 94 and calcium 9.7. PROBLEMS: 1. End-stage renal disease - The patient was dialyzed on Thursday and will plan her next dialysis for tomorrow. Her electrolytes are stable and volume status is well compensated. 2. Congestive heart failure her congestive heart failure was most likely related to missed dialysis treatment and atrial fibrillation with rapid ventricular rate. Her volume status is now much better compensated. 3. Atrial fibrillation she was admitted with rapid atrial fibrillation and now her ventricular rate is much better controlled. She remains on Digoxin and Eliquis. 4. Anemia her anemia has been stable at this point and no urgent transfusion is needed. 5. Chronic hypotension - The patient remains on Midodrine 5 mg three times daily and blood pressure is at about her baseline. 6. Pericardial effusion and pleural effusion - The patient has chronic issues with severe protein calorie malnutrition and hypotension. We are unable to aggressively remove fluid. At this point we will continue with frequent dialysis and try to remove as much fluid as she can tolerate.
[2021-09-08 22:00] VITALS: BP 94/45
[2021-09-08] MEDS: SERTRALINE 100 MG TAB PO SCH (22:44)
[2021-09-09] MEDS: COMBIVENT RESPIMAT 100-20MCG INHALER 4GM INH SCH ×4 (02:00→20:02)
[2021-09-09 06:00] VITALS: BP 99/45
[2021-09-09] MEDS: CALCITRIOL 0.25 MCG CAP (S0169) PO SCH (06:45)
[2021-09-09] MEDS: DIGOXIN 0.25 MG TAB PO SCH (06:45)
[2021-09-09] MEDS ORDERED: SODIUM CHLORIDE 0.9% 1000ML IV PRN (06:45)
[2021-09-09] MEDS: APIXABAN 2.5 MG TAB (ELIQUIS) PO SCH ×2 (06:45→21:31)
[2021-09-09] MEDS ORDERED: LIDOCAINE 1% SDV 5ML VIAL SC PRN (06:45)
[2021-09-09] MEDS: MIDODRINE 5 MG TAB PO SCH ×3 (06:46→16:14)
[2021-09-09] MEDS: DOCUSATE SODIUM 100MG CAPSULE PO SCH ×2 (06:46→21:32)
[2021-09-09 07:36] LABS: HEMATOCRIT 40.1 % (36.0-47.0); HEMOGLOBIN 11.6 g/dl (12.0-15.5); MEAN CORPUSCULAR HEMOGLOBIN 32.1 pg (27.0-33.0); MEAN CORPUSCULAR HGB CONC 28.9 g/dl (32.0-36.5); MEAN CORPUSCULAR VOLUME 111.1 fl (80.0-96.0); PLATELET COUNT, AUTOMATED 163 10^3/uL (150-450); RED BLOOD COUNT 3.61 10^6/uL (4.00-5.40); WHITE BLOOD COUNT 13.4 10^3/uL (4.0-10.0)
[2021-09-09 08:00] VITALS: BP 100/37
[2021-09-09 08:09] LABS: CALCIUM LEVEL 9.9 MG/DL (8.8-10.2); CREATININE FOR GFR 4.63 MG/DL (0.55-1.30); GLOMERULAR FILTRATION RATE 9.8 (>39); POTASSIUM SERUM 5.1 MEQ/L (3.5-5.1); VANCOMYCIN RANDOM 18.6 UG/ML
--- NOTE | 2021-09-09 10:56 | IPNPDOC ---
Subjective Date Seen The patient was seen on 09/09/21. Subjective Chief Complaint/HPI SUBJECTIVE: Patient was seen and examined this morning at hemodialysis unit. She does not complain of any issues overnight. At bedside she was a bit nauseous and vomited. Blood pressure has been between 90s to low 100s systolic. She seems to be at her baseline mentation. She denies any increase shortness of breath or increased lower extremity edema that deviates her baseline. OBJECTIVE: VS:SEE BELOW GENERAL: The patient was seen in the morning at the HD unit. Does not seem to be in acute distress. She satting 97% on 3 L nasal cannula. HEENT: Head is normocephalic, atraumatic. Moist mucous members. NECK: Supple. Jugular veins are mildly elevated. HEART: Sounds are bradycardic, S1, S2 and irregular. LUNGS: Show diminished breath sounds with bibasilar crackle but no accessory muscle use, no tachypnea. She is comfortable on nasal cannula. ABDOMEN: Soft, obese, and nontender. EXTREMITIES: There is a fistula in the right arm, which is presently in use for HD IMPRESSION AND PLAN: 1. End-stage renal disease, on hemodialysis. The patient has chronic underlying hypotension and she also has hypotension of hemodialysis which complicates her treatments and does not allow for any aggressive fluid removal. She has bilateral pleural effusions. She also has pericardial effusion. However, the patient has also had increase in white count and poor oral intake and increasing confusion. She will be dialyzed today without any fluid removal due to hypotension without any fluid removal. 2. Oodua-aq-mrssbej hypotension. Patient is on Midodrine has been increased to 5 mg 3 times daily. Increased the dose to Midodrine 5 mg three times a day. Her white count improved from yesterday and she continues on Vanco meropenem per primary team. Repeat blood cultures did not show any growth thus far. 3. Anemia of chronic kidney disease. Hemoglobin has been stable with the latest labs of 11. Aranesp is continued. 4. Protein calorie malnutrition/albuminemia. Given the patient's hypotension of hemodialysis albumin was ordered with today's treatment and consent was obtained from her sister, Ann Li and niece Caterina Li over the phone. 5. Atrial fibrillation. The patient is intermittently bradycardic. She is on Digoxin managed by the primary team. Typically dialysis patients are not on daily Digoxin dosing and I suggest cutting back and I defer to the primary service. She is also on low dose Eliquis anticoagulation. 6. Pericardial effusion and pleural effusion in the setting of heart failure with preserved ejection fraction. Unfortunately, hypotension of hemodialysis makes aggressive fluid removal not an option and at present time patient has been increasingly confused with rising white count and minimal oral intake. Hence, today she is only being dialyzed for clearance without any fluid removal and she is going to receive albumin for blood pressure support. VS, I&O, 24H, Fishbone Vital Signs/I&O Vital Signs Date Time Temp Pulse Resp B/P (MAP) Pulse Ox O2 Delivery O2 Flow Rate FiO2 09/09/21 06:45 96 09/09/21 06:00 98.1 19 99/45 (63) 97 Nasal Cannula 3.0 I&O- Last 24 Hours up to 6 AM 09/09/21 06:00 Intake Total 440 ml Output Total 0 ml Balance 440 ml Laboratory Data 24H LABS Laboratory Tests 2 09/09/21 07:11: Nucleated Red Blood Cells % (auto) 0.3H, Anion Gap 5L, Glomerular Filtration Rate 9.8L, Calcium Level 9.9, Random Vancomycin Level 18.6 CBC/BMP Laboratory Tests 09/09/21 07:11 Microbiology Microbiology 09/05/21 Blood Culture - Preliminary, Resulted No Growth after 72 hours. All specime... 09/05/21 Blood Culture - Preliminary, Resulted No Growth after 72 hours. All specime... 09/03/21 Blood Culture - Final, Complete NO GROWTH AFTER 5 DAYS GME ATTESTATION GME ATTESTATION My faculty preceptor for this patient encounter was physically present during the encounter and was fully available. All aspects of the patient interview, examination, medical decision making process, and medical care plan development were reviewed and approved by the faculty preceptor. The faculty preceptor is aware and concurs with the plan as stated in the body of this note and will attest to such by his/her cosignature. Soo Santacruz DO Sep 09, 2021 10:56
[2021-09-09] MEDS ORDERED: BISACODYL 10 MG SUPP PR PRN (13:05)
[2021-09-09] MEDS: SENNA 8.6 MG TAB (SENOKOT) PO SCH ×2 (14:39→21:31)
[2021-09-09] MEDS ORDERED: VANCOMYCIN HCL 750 MG, VIAL MATE ADAPTER 1 EACH in NS 250 ML IV SCH (16:00)
[2021-09-09] MEDS: MEROPENEM INJ 1 GM in IV 1 EA IV SCH (16:00)
[2021-09-09] MEDS: ONDANSETRON 4MG/2ML VIAL IV PRN (16:14)
[2021-09-09] MEDS: **VANCO AFTER HD** MISC XX SCH (16:24)
[2021-09-09] MEDS: SERTRALINE 100 MG TAB PO SCH (21:32)
[2021-09-10] MEDS: COMBIVENT RESPIMAT 100-20MCG INHALER 4GM INH SCH ×4 (01:25→20:25)
[2021-09-10 06:00] VITALS: BP 105/51
[2021-09-10 07:49] LABS: HEMATOCRIT 39.7 % (36.0-47.0); HEMOGLOBIN 11.5 g/dl (12.0-15.5); MEAN CORPUSCULAR HEMOGLOBIN 32.2 pg (27.0-33.0); MEAN CORPUSCULAR VOLUME 111.2 fl (80.0-96.0); PLATELET COUNT, AUTOMATED 137 10^3/uL (150-450); RED BLOOD COUNT 3.57 10^6/uL (4.00-5.40); WHITE BLOOD COUNT 12.1 10^3/uL (4.0-10.0)
[2021-09-10 08:30] LABS: C REACTIVE PROTEIN QUANTITATIV 2.74 MG/DL (0.00-0.30); CALCIUM LEVEL 9.5 MG/DL (8.8-10.2); CREATININE FOR GFR 2.8 MG/DL (0.55-1.30); GLOMERULAR FILTRATION RATE 17.4 (>39); POTASSIUM SERUM 3.8 MEQ/L (3.5-5.1)
[2021-09-10] MEDS: MIDODRINE 5 MG TAB PO SCH ×3 (09:57→16:34)
[2021-09-10] MEDS: APIXABAN 2.5 MG TAB (ELIQUIS) PO SCH ×2 (09:57→20:41)
[2021-09-10] MEDS: FAMOTIDINE 20 MG TAB PO SCH (09:58)
[2021-09-10] MEDS: SENNA 8.6 MG TAB (SENOKOT) PO SCH ×2 (09:58→20:41)
[2021-09-10] MEDS: DOCUSATE SODIUM 100MG CAPSULE PO SCH ×2 (09:58→20:41)
[2021-09-10] MEDS: DIGOXIN 0.25 MG TAB PO SCH (10:00)
--- NOTE | 2021-09-10 12:45 | IPN ---
NEPHROLOGY PROGRESS NOTE DATE: 09/10/2021 SUBJECTIVE: Ms. Downing is seen this morning on her bedside. She is feeling weak and also sick to her stomach. She did not each much. She has chronic dyspnea and remains on oxygen. She is very weak and mostly bed-bound. She has no fever or chills. PHYSICAL EXAMINATION: Temperature 97.2 degrees Fahrenheit, heart rate 52 per minute and respiratory rate 16 per minute. Blood pressure 105/50 mmHg and oxygen saturation 99% on 3 liters oxygen. Head: Atraumatic. There is no oral thrush or ulcers. Neck: Supple and there is no JVD or thyroid enlargement. Heart: Sounds are irregular. Lungs: Diminished breath sounds bilaterally. Back: She has a pressure ulcer on her back which is covered with a dressing. She also has some redness on her back due to pressure. Abdomen: Soft with some tenderness, but bowel sounds are present. Extremities: Without any cyanosis or clubbing. Neurologically: She is awake and able to answer questions. LABORATORY DATA: Today's labs show: WBC count 12.1, hemoglobin 11.5, hematocrit 39.7 and platelets 137. Sodium 135, potassium 3.8, chloride 101, CO2 28, BUN 16, creatinine 2.8. C-reactive protein is 2.74. PROBLEMS/PLAN: 1. End-stage renal disease: Patient was dialyzed yesterday and next dialysis will be scheduled for tomorrow. No emergent need for dialysis today. 2. Hyponatremia: She has mild hyponatremia for which no intervention will be needed. This will be corrected with dialysis. 3. Anemia: Her anemia is stable and no intervention is needed. 4. Decubitus ulcers: Patient remains on vancomycin and is currently afebrile. 5. Hypoxemia: This is chronic and volume status is reasonably well compensated. 6. DNR: I discussed with the patient about her wishes for resuscitation and she wishes to be a Full Code at this point. I have explained to her about her conditions and advised to think about DNR. CODE STATUS: She remains Full Code.
[2021-09-10 14:00] VITALS: BP 93/46
[2021-09-10] MEDS: **VANCO AFTER HD** MISC XX SCH (16:00)
[2021-09-10] MEDS: MEROPENEM INJ 1 GM in IV 1 EA IV SCH (16:34)
[2021-09-10 20:00] VITALS: BP 112/48
[2021-09-10] MEDS: SERTRALINE 100 MG TAB PO SCH (20:41)
[2021-09-11] MEDS: COMBIVENT RESPIMAT 100-20MCG INHALER 4GM INH SCH ×4 (01:05→20:22)
[2021-09-11 06:00] VITALS: BP 94/52
[2021-09-11] MEDS: CALCITRIOL 0.25 MCG CAP (S0169) PO SCH (07:17)
[2021-09-11] MEDS: DIGOXIN 0.25 MG TAB PO SCH (07:17)
[2021-09-11] MEDS: APIXABAN 2.5 MG TAB (ELIQUIS) PO SCH ×2 (07:17→22:36)
[2021-09-11] MEDS: SENNA 8.6 MG TAB (SENOKOT) PO SCH ×2 (07:17→22:35)
[2021-09-11] MEDS: DOCUSATE SODIUM 100MG CAPSULE PO SCH ×2 (07:17→22:35)
[2021-09-11] MEDS: MIDODRINE 5 MG TAB PO SCH ×3 (07:17→16:39)
[2021-09-11] MEDS ORDERED: LIDOCAINE 1% SDV 5ML VIAL SC PRN (07:30)
[2021-09-11] MEDS ORDERED: SODIUM CHLORIDE 0.9% 1000ML IV PRN (07:30)
[2021-09-11 08:00] VITALS: BP 96/52
[2021-09-11 08:43] LABS: HEMATOCRIT 38.9 % (36.0-47.0); HEMOGLOBIN 11.5 g/dl (12.0-15.5); MEAN CORPUSCULAR HEMOGLOBIN 32.5 pg (27.0-33.0); MEAN CORPUSCULAR HGB CONC 29.6 g/dl (32.0-36.5); MEAN CORPUSCULAR VOLUME 109.9 fl (80.0-96.0); PLATELET COUNT, AUTOMATED 109 10^3/uL (150-450); RED BLOOD COUNT 3.54 10^6/uL (4.00-5.40); WHITE BLOOD COUNT 13.7 10^3/uL (4.0-10.0)
[2021-09-11 09:15] LABS: ALBUMIN 2.3 GM/DL (3.2-5.2); CALCIUM LEVEL 9.4 MG/DL (8.8-10.2); CREATININE FOR GFR 3.9 MG/DL (0.55-1.30); GLOMERULAR FILTRATION RATE 11.9 (>39); PHOSPHORUS LEVEL 3.8 MG/DL (2.5-4.9); POTASSIUM SERUM 4.2 MEQ/L (3.5-5.1); VANCOMYCIN RANDOM 24.4 UG/ML
[2021-09-11 12:00] VITALS: BP 90/62
[2021-09-11 14:00] VITALS: BP 106/50
[2021-09-11] MEDS: SERTRALINE 100 MG TAB PO SCH (22:36)
[2021-09-12 06:00] VITALS: BP 119/74
[2021-09-12] MEDS ORDERED: CALC1CAP31 PO ×2 (06:37→23:26)
[2021-09-12] MEDS ORDERED: MIDO5TA PO (06:37)
[2021-09-12] MEDS ORDERED: DIGO0.253 PO ×2 (06:37→23:26)
[2021-09-12] MEDS: MIDODRINE 5 MG TAB PO SCH ×2 (08:00→11:11)
[2021-09-12 08:15] VITALS: BP 104/59
--- NOTE | 2021-09-12 08:25 | DS.PDOC ---
Discharge Summary General Date of Admission Aug 28, 2021 at 16:25 Date of Discharge 09/12/21 Discharge Summary PROCEDURES PERFORMED DURING STAY: [None]. DISCHARGE DIAGNOSES: 1. COPD (on home 02 2-3L) 2. Dementia 3. Combined systolic and diastolic heart failure 4. Atrial fibrillation 5. Anxiety 6. Thrombocytopenia 7. Hyperlipidemia 8. Hypertension 9. Coronary artery disease 10. GERD 11. Constipation 12. End-stage renal disease 13. Iron deficiency anemia COMPLICATIONS/CHIEF COMPLAINT: Atrial Fibrillation With Rvr. HISTORY OF PRESENT ILLNESS: From H&P: 76-year-old female sent from [facility] with primary concerns of shortness of breath and increased heart rate. Patient is a very poor historian and looking through her records she has underlying dementia. Therefore it is difficult to obtain history and review of systems. When asked why she came to the hospital, she reported " I do not know". She was asked if she has chest pain, abdominal pain, problem with urination and bowel movements and report "all of that" but not able to provide details. She was asked if she was having any of the pain now but reported "no, before "but was unable to provide details. She did report abdominal pain which she can said was there for a while and was unable to provide details. In the emergency room department, she was noted to be in CHF exacerbation as well as atrial fibrillation with rapid ventricular response. HOSPITAL COURSE: She has been [facility] since 08/31/21 waiting placement. She has a very poor prognosis, and DATABASE MANAGEMENT SPECIALIST would be appropriate. Multiple providers have discussed this with her, however she wishes to be full code. Her hospital stay is outlined as below: #Atrial fibrillation with rapid ventricular response -Resolved. Digoxin started shortly after admission -anticoagulation with apixaban. -echocardiogram completed - no acute pathology #Shortness of breath -Resolved. Likely secondary to fluid overload/medical non-compliance - missed dialysis -CTA of chest is negative for pe. #CHF exacerbation/HFpEF -Echocardiogram noted left ventricular ejection fraction of 70%. possibly induced by her tachyarrhythmia cardiomyopathy; dialysis as planned by nephrology team -echocardiogram completed - no acute pathology #Abdominal pain - resolved -Likely due to underlying cirrhosis; and possible enterocolitis seen on ct. She is tolerating a diet. Symptomatic management with Zofran #ESRD -follow as per nephrology with HD #COPD -baseline 2-3 L home oxygen. Albuterol as needed. #?CAD; HLD -This was reported in her med list problem sent from [facility]. #Depression/anxiety -Continue with sertraline #Dementia #Deconditioned/osteopenia and OA -Severe osteoarthritis in the bilateral shoulders. Subacute to chronic fracture deformities of several bilateral anterolateral ribs. Kyphosis of the thoracic spine. Severe multilevel degenerative disease. Anterior wedge compression fractures of T4 and T5, likely chronic. Mild dextroscoliosis. DISCHARGE MEDICATIONS: Please see below. ALLERGIES: Please see below. PHYSICAL EXAMINATION ON DISCHARGE: VITAL SIGNS: Please see below. General: Lying in bed, no acute distress Head/Neck/Throat: Trachea midline, mucous membranes moist Eyes: Sclera anicteric, no erythema or discharge appreciated bilaterally Lungs: minimal scattered crackles Cardiovascular: Normal rate, regular rhythm, normal S1, S2; no S3, S4, rubs/gallops/murmurs Abdomen: Bowel sounds present, soft, NT Musculoskeletal: Moving all extremities on casual observation Skin: Warm, dry Neurologic: no focal deficits, grossly intact Psych: AAOx3 LABORATORY DATA: Please see below. PROGNOSIS: Very poor prognosis. ACTIVITY: [As tolerated]. DISCHARGE INSTRUCTIONS: 1. Follow up with PCP in 3-5 days. DISCHARGE CONDITION: [Stable]. TIME SPENT ON DISCHARGE: 35 minutes. Vital Signs/I&Os Vital Signs Date Time Temp Pulse Resp B/P (MAP) Pulse Ox O2 Delivery O2 Flow Rate FiO2 09/12/21 06:00 97.1 80 17 119/74 (89) 94 Room Air 09/11/21 21:00 2.0 I&O- Last 24 Hours up to 6 AM 09/12/21 06:00 Intake Total 90 ml Output Total 500 ml Balance -410 ml Microbiology Microbiology 09/11/21 Stool Occult Blood (JAMAL) - Final, Complete 09/05/21 Blood Culture - Final, Complete NO GROWTH AFTER 5 DAYS 09/05/21 Blood Culture - Final, Complete NO GROWTH AFTER 5 DAYS 09/03/21 Blood Culture - Final, Complete NO GROWTH AFTER 5 DAYS Discharge Medications Scheduled Apixaban (Eliquis) 2.5 Mg Tablet, 2.5 MG PO BID, (Reported) Calcitriol (Calcitriol) 0.25 Mcg Capsule, 0.25 MCG PO 3XW, (Reported) THURSDAY, THURSDAY AND THURSDAY Digoxin (Digoxin) 250 Mcg Tablet, 250 MCG PO DAILY, (Reported) Famotidine (Pepcid) 20 Mg Tablet, 20 MG PO DAILY, (Reported) Melatonin (Melatonin) 5 Mg Tablet, 5 MG PO QHS, (Reported) Midodrine HCl (Midodrine HCl) 5 Mg Tablet, 5 MG PO TID 0800, 1200, 1600 Salmeterol/Fluticasone (Advair 500-50 Diskus) 1 Each Blst.w.dev, 1 PUFF INH BID, (Reported) Sertraline Hcl (Zoloft) 100 Mg Tablet, 100 MG PO QHS, (Reported) Scheduled PRN Albuterol Sulfate (Proair Respiclick) 90 Mcg Aer.pow.ba, 2 PUFF INH Q6H PRN for SHORTNESS OF BREATH, (Reported) Bisacodyl (Dulcolax) 10 Mg Supp.rect, 1 SUPP [place] DAILY PRN for CONSTIPATION, (Reported) STEP 3: IF BISACODYL TABLET IS INEFFECTIVE Bisacodyl (Bisacodyl) 5 Mg Tablet.dr, 5 MG PO DAILY PRN for CONSTIPATION, (Reported) STEP 2 IF LACTULOSE IS INEFFECTIVE Lactulose (Lactulose) 10 Gm/15 Ml Solution, 30 ML PO DAILY PRN for CONSTIPATION, (Reported) IF NO BM IN 3 DAYS: STEP 1 Sodium Phosphate,[place]-Dibasic (Fleet Enema) 133 Ml Enema, 1 JERED [place] DAILY PRN for CONSTIPATION, (Reported) STEP 4: IF BISACODYL SUPPOSITORY IS INEFFECTIVE Allergies Coded Allergies: NSAIDS (Non-Steroidal Anti-Inflamma (Verified Allergy, Unknown, 08/28/21) Penicillins (Verified Allergy, Unknown, 08/28/21) Quinolones (Verified Allergy, Unknown, 08/28/21) capsaicin (Verified Allergy, Unknown, 08/28/21) diclofenac (Verified Allergy, Unknown, 08/28/21) misoprostol (Verified Allergy, Unknown, 08/28/21) risedronate sodium (Verified Allergy, Unknown, 08/28/21) ESTHER GRISSOM MD Sep 12, 2021 08:25
[2021-09-12] MEDS: COMBIVENT RESPIMAT 100-20MCG INHALER 4GM INH SCH (09:16)
[2021-09-12] MEDS: DOCUSATE SODIUM 100MG CAPSULE PO SCH (09:51)
[2021-09-12] MEDS: APIXABAN 2.5 MG TAB (ELIQUIS) PO SCH (09:51)
[2021-09-12] MEDS: DIGOXIN 0.25 MG TAB PO SCH (09:52)
[2021-09-12] MEDS: SENNA 8.6 MG TAB (SENOKOT) PO SCH (09:52)
[2021-09-12] MEDS: FAMOTIDINE 20 MG TAB PO SCH (09:52)
[2021-09-12] MEDS: traMADol 50 MG TAB PO PRN (11:12)
--- NOTE | 2021-09-12 11:55 | IPNPDOC ---
Subjective Date Seen The patient was seen on 09/12/21. Subjective Chief Complaint/HPI SUBJECTIVE: Patient was seen and examined this morning at bedside. She received HD yesterday with 500cc fluid removed and she tolerated without any hemodynamic compromise. She is more alert and awake at bedside this morning. She feels less nauseous and has not been vomiting. OBJECTIVE: VS:SEE BELOW GENERAL: The patient was seen in the morning at the HD unit. Does not seem to be in acute distress. She satting 99% on 2 L nasal cannula. HEENT: Head is normocephalic, atraumatic. Moist mucous members. NECK: Supple. Jugular veins are mildly elevated. HEART: Sounds are bradycardic, S1, S2 and irregular. LUNGS: Show diminished breath sounds with bibasilar crackle but no accessory muscle use, no tachypnea. She is comfortable on nasal cannula. ABDOMEN: Soft, obese, and nontender. EXTREMITIES: There is a fistula in the right arm, which is presently in use for HD IMPRESSION AND PLAN: 1. End-stage renal disease, on hemodialysis. The patient has chronic underlying hypotension and she also has hypotension of hemodialysis which complicates her treatments and does not allow for any aggressive fluid removal. She has bilateral pleural effusions. She also has pericardial effusion. She's been intermittently confused however, she's more alert and oriented today. She was dialyzed yesterday with 500cc fluid removal and tolerated without any hemodynamic compromise. She will get HD tomorrow. 2. Ewprr-vm-fmftxic hypotension. Patient is on Midodrine has been increased to 5 mg 3 times daily. Increased the dose to Midodrine 5 mg three times a day. Her white count has been around the same and is s/p vanc and merrem per primary. Repeat blood cultures did not show any growth thus far. 3. Anemia of chronic kidney disease. Hemoglobin has been stable with the latest labs of 11. Aranesp is continued. 4. Protein calorie malnutrition/albuminemia. Given the patient's hypotension of hemodialysis albumin was ordered with today's treatment and consent was obtained from her sister, Ann Li and niece Caterina Li over the phone. 5. Atrial fibrillation. The patient is intermittently bradycardic. She is on Digoxin managed by the primary team. Typically dialysis patients are not on daily Digoxin dosing and I suggest cutting back and I defer to the primary se rvice. She is also on low dose Eliquis anticoagulation. 6. Pericardial effusion and pleural effusion in the setting of heart failure with preserved ejection fraction. Unfortunately, hypotension of hemodialysis makes aggressive fluid removal not an option. She however, did had 500cc fluid removed yesterday at HD which she tolerated. At present, she feels better than previous days. VS, I&O, 24H, Fishbone Vital Signs/I&O Vital Signs Date Time Temp Pulse Resp B/P (MAP) Pulse Ox O2 Delivery O2 Flow Rate FiO2 09/12/21 11:12 16 09/12/21 09:52 77 09/12/21 08:15 96.2 104/59 (74) 99 Nasal Cannula 2.0 I&O- Last 24 Hours up to 6 AM 09/12/21 06:00 Intake Total 90 ml Output Total 500 ml Balance -410 ml Laboratory Data Microbiology Microbiology 09/11/21 Stool Occult Blood (JAMAL) - Final, Complete 09/05/21 Blood Culture - Final, Complete NO GROWTH AFTER 5 DAYS 09/05/21 Blood Culture - Final, Complete NO GROWTH AFTER 5 DAYS 09/03/21 Blood Culture - Final, Complete NO GROWTH AFTER 5 DAYS GME ATTESTATION GME ATTESTATION My faculty preceptor for this patient encounter was physically present during the encounter and was fully available. All aspects of the patient interview, examination, medical decision making process, and medical care plan development were reviewed and approved by the faculty preceptor. The faculty preceptor is aware and concurs with the plan as stated in the body of this note and will attest to such by his/her cosignature. Soo Santacruz DO Sep 12, 2021 11:55
[2021-09-12] MEDS ORDERED: BISA5TAB15 PO (23:26)
[2021-09-12] MEDS ORDERED: FLEEENE12 PR (23:26)
[2021-09-12] MEDS ORDERED: LACT20EL PO (23:26)
== END 2021-09-12 11:54 | DRG 291 ==
LOC: M ED 12:20 → EDBD 12:20 → M ED INP 16:25 → ENRESERV 20:31 → M PCU 23:51 → M MSPAV 09-01 23:13
PROVIDERS: ADMIT Internal Medicine; ATTEND Internal Medicine
PROC: 5A1D70Z Performance of Urinary Filtration, Intermittent, Less than 6 Hours Per Day (ICD-10-PCS; principal; 2021-08-29)
DX: I13.2 Hypertensive heart and chronic kidney disease with heart failure and with stage 5 chronic kidney disease, or end stage renal disease (principal); I50.33 Acute on chronic diastolic (congestive) heart failure; N18.6 End stage renal disease; E43 Unspecified severe protein-calorie malnutrition; I31.3 Pericardial effusion (noninflammatory); J90 Pleural effusion, not elsewhere classified; E87.1 Hypo-osmolality and hyponatremia; J44.9 Chronic obstructive pulmonary disease, unspecified; F03.90 Unspecified dementia, unspecified severity, without behavioral disturbance, psychotic disturbance, mood disturbance, and anxiety; I48.91 Unspecified atrial fibrillation; F41.9 Anxiety disorder, unspecified; D69.6 Thrombocytopenia, unspecified; E78.5 Hyperlipidemia, unspecified; I25.10 Atherosclerotic heart disease of native coronary artery without angina pectoris; K21.9 Gastro-esophageal reflux disease without esophagitis; K59.00 Constipation, unspecified; D50.9 Iron deficiency anemia, unspecified; Z96.0 Presence of urogenital implants; Z99.2 Dependence on renal dialysis; F32.A Depression, unspecified; Z79.01 Long term (current) use of anticoagulants; Z79.899 Other long term (current) drug therapy; Z88.0 Allergy status to penicillin; Z88.8 Allergy status to other drugs, medicaments and biological substances; Z20.822 Contact with and (suspected) exposure to COVID-19; M19.90 Unspecified osteoarthritis, unspecified site; Z72.3 Lack of physical exercise; M40.209 Unspecified kyphosis, site unspecified; Z99.81 Dependence on supplemental oxygen; I95.3 Hypotension of hemodialysis; E87.5 Hyperkalemia; D63.1 Anemia in chronic kidney disease; Z91.14 Patient's other noncompliance with medication regimen; L89.102 Pressure ulcer of unspecified part of back, stage 2

== ENCOUNTER 2021-09-12 18:05 | Inpatient (IN) | payer MEDICARE, MEDICAID ==
[~2021-09-12] VITALS: Ht 175.3 cm; Wt 58.7 kg
[~2021-09-12 18:05] MED LIST: ADV500INH INH; CALC1CAP31 PO; DIGO0.253 PO; DULC10SU2 PR; ELIQ2.5T PO; MELA1TAB9 PO; MELA5TAB21 PO; MIDO5TA PO; PEPC1TAB5 PO; PROA1AER2 INH; SERT-141 PO; ZOLO100T PO
[2021-09-12 18:55] LABS: BASO % 0.2 % (0.0-1.0); EOS % 0.1 % (0.0-3.0); HEMATOCRIT 42.9 % (36.0-47.0); HEMOGLOBIN 12.5 g/dl (12.0-15.5); LYMPH # 1.6 10^3/uL (1.5-5.0); LYMPH % 9.9 % (24.0-44.0); MEAN CORPUSCULAR HEMOGLOBIN 32.2 pg (27.0-33.0); MEAN CORPUSCULAR HGB CONC 29.1 g/dl (32.0-36.5); MEAN CORPUSCULAR VOLUME 110.6 fl (80.0-96.0); MONO # 1.3 10^3/uL (0.0-0.8); MONO % 7.9 % (2.0-8.0); NEUTROPHILS # 12.8 10^3/uL (1.5-8.5); NEUTROPHILS % 80.7 % (36.0-66.0); RED BLOOD COUNT 3.88 10^6/uL (4.00-5.40); WHITE BLOOD COUNT 15.9 10^3/uL (4.0-10.0)
--- NOTE | 2021-09-12 18:57 | REP ---
INDICATION: CHEST PAIN. COMPARISON: 09/05/2021. TECHNIQUE: Single portable AP view of the chest was performed. FINDINGS: There is cardiomegaly. Scattered infiltrate in the right lung with mild right pleural fluid/thickening is unchanged. There appears to be increased left pleural fluid. There is mild left base atelectasis/infiltrate. There is calcification of the thoracic aorta. Multiple metallic clips are seen in the upper abdomen. There are degenerative changes of the shoulders. IMPRESSION: Right lung infiltrate with small amount of right pleural fluid/thickening unchanged. Increased left pleural fluid with mild left base atelectasis/infiltrate. Cardiomegaly. <Electronically signed by Rob Vallejo > 09/12/21 [id number]
--- NOTE | 2021-09-12 19:15 | ECGEPIP ---
[facility] - ED Test Date: 2021-09-12 Pat Name: HERMINIO BROOKS Department: Room: - Gender: Female Chronic Disease Manager: DORIS : 1945 Requested By: EMERY Senior Order Number: [id number] Reading MD: Thao Caldwell Measurements Intervals [place] Rate: 55 P: [place]: QRS: 94 QRSD: 90 T: -8 QT: 356 QTc: 340 Interpretive Statements Undetermined rhythm Rightward axis Cannot rule out Anterior infarct , age undetermined clinical correlation prior atrial fibrillation 08/28/21 Electronically Signed on 09-12-2021 19:15:48 EST by Thao Caldwell
[2021-09-12 20:23] LABS: RSV AMPLIFICATION NEGATIVE (NEGATIVE)
[2021-09-12 20:53] LABS: ALBUMIN 2.6 GM/DL (3.2-5.2); ALT/SGPT 11 U/L (12-78); BILIRUBIN,DIRECT 0.3 MG/DL (0.0-0.2); BILIRUBIN,TOTAL 0.9 MG/DL (0.2-1.0); BLOOD UREA NITROGEN 22 MG/DL (7-18); CALCIUM LEVEL 10.2 MG/DL (8.8-10.2); CARBON DIOXIDE LEVEL 26 MEQ/L (21-32); CHLORIDE LEVEL 103 MEQ/L (98-107); GLUCOSE, FASTING 116 MG/DL (70-100); LIPASE 89 U/L (73-393); MAGNESIUM LEVEL 2.4 MG/DL (1.8-2.4); NT-PRO BNP 17945 PG/ML (<450); POTASSIUM SERUM 5.1 MEQ/L (3.5-5.1); SODIUM LEVEL 136 MEQ/L (136-145); TOTAL PROTEIN 7.2 GM/DL (6.4-8.2)
[2021-09-12] MEDS ORDERED: DIGOXIN IMMUNE FAB (OVINE) 40MG VIAL (J1162) IV ONE (21:00)
--- NOTE | 2021-09-12 22:15 | HPEPDOC ---
[facility] Medical History & Physical Date of Admission Sep 12, 2021 Date of Service: Sep 12, 2021 Attending Physician: WALTER GARY MD History and Physical CHIEF COMPLAINT: Bradycardia HISTORY OF PRESENT ILLNESS: Vianey Downing is a 76 year old female who was discharged today from [facility] after being admitted for afib with RVR and CHF exacerbation. Patient has baseline dementia and is a poor historian so Hx is obtained from EMS and Ed provider. She was discharged to [place] rehab earlier and was subsequently sent back to [facility] ED because of hypotension and hypoxia. Patient was noted by EMS to have a SBP in the 80's while satting in the 50%'s while at [place] and upon O2 administration was satting 77% on 4LNC which improved to 88-90% on 6L. At [facility] ED, her BP and O2 had improved, but her HR was 25. An EKG was ordered, Dr. Henning w/cardiology was contacted and he felt this was likely related to Digoxin toxicity. A Digoxin level was ordered and returned as 6. Digibind was given in the ED. 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 She remains FULL CODE. PAST MEDICAL HISTORY: #. Dementia #. CHF w/pEF #. Atrial fibrillation #. ESRD, on HD, MWF schedule #. Coronary artery disease #. COPD on 2-3LNC at home #. Chronic Hypotension #. GERD #. Iron deficiency anemia 2/2 blood loss, chronic #. Hx of abnormal uterine and vaginal bleeding #. Morbid obesity #. Thrombocytopenia #. Anxiety + MDD #. hx HTN #. hx of HLD #. Hx Urogenital Implants PAST SURGICAL HISTORY: 1. Urogenital implants SOCIAL HISTORY: Unobtainable 2/2 dementia FAMILY HISTORY: Unable to provide 2/2 to dementia ALLERGIES: Please see below. REVIEW OF SYSTEMS: Unable to provide 2/2 to dementia HOME MEDICATIONS: Please see below. PHYSICAL EXAMINATION: VITAL SIGNS: See below. GENERAL APPEARANCE: Patient is an chronically ill appearing 76 year old who is laying in bed and in no acute distress and looks her age. HENT: NC/AT, moist mucous membranes, EOMI CARDIOVASCULAR: Bradycardic rate, regular rhythm LUNGS: Diminished breath sounds bilaterally with crackles in bilateral lung bases. No wheezes or rhonchi. ABDOMEN: Soft, obese, minimally tender to palpation in all 4 quadrants, jumped when left lower quadrants. EXTREMITIES: Mild pitting edema bilaterally up to the knee. PSYCHIATRIC: Oriented to place and self but not to time. NEURO: Unable to asses due to patient cooperation, moves all4 extremities, no gross focal deficits appreciated. LABORATORY DATA: See below. IMAGING: #. 09/12/21 CXR: "IMPRESSION: - Right lung infiltrate with small amount of right pleural fluid/thickening unchanged. - Increased left pleural fluid with mild left base atelectasis/infiltrate. - Cardiomegaly." MICROBIOLOGY: Please see below. ASSESSMENT: Vianey Downing is a 76 year old female with PMHx of CHF and CAD who presented to the ED and was found to have elevated digoxin levels concerning for digoxin toxicity. S/p digibind. PLAN: #. Bradycardia - likely 2/2 to digoxin toxicity - Digoxin level of 6 per Ed provider, given Digibind in ED - Monitor on telemetry, atropine at bedside, pacer pads applied to patient - Daily digoxin levels, may need to consider changing to different afib controlling agent #. Leukocytosis - Patient is s/p 6 days of vanco + meropenem - Procalcitonin of 0.52, unchanged from 09/10 - CXR showing possible left lower lobe infiltrate vs. atelectasis, will resume meropenem + vancomycin w/ hemodialysis and trend procal - will check UA #. ESRD on HD ([facility]) - Dr. Rosas consulted in ED, aware of patient - plan for HD in am #. Afib - Continue Eliquis - Consider different rate control agent #. CHF w/ pEF - 08/29 TTE w/ 70% LVEF showing severe LA dilatation, mild , mild pulmonary HTN, Mod pericardial effusion - Patient in ESRD on HD, as per nephrology continue w/ fluid removal #. CAD - Noted per [place] paperwork, no provided hx of stent placement/CABG - On Eliquis for afib #. Hypotension in the setting of ESRD - Continue Midodrine #. Hx of macrocytic anemia - Patient has Hx of iron deficiency anemia - Per [place] paperwork patient has a hx of abnormal uterine and vaginal bleeding - Patient on HD #. Hx of thrombocytopenia - Continue to monitor #. Dementia - Of unknown origin - Not on any medications outpatient #. COPD - Continue salumetrol/fluticasone #. GERD - Continue Famotidine #. Anxiety + Depression - Continue Sertaline #. Obesity -Complicating care DVT prophylaxis: Eliquis CODE status: FULL CODE Vital Signs Vital Signs Date Time Temp Pulse Resp B/P (MAP) Pulse Ox O2 Delivery O2 Flow Rate FiO2 09/12/21 21:53 39 09/12/21 20:35 92 09/12/21 20:31 113/68 (83) 09/12/21 19:35 Nasal Cannula 4.0 09/12/21 18:21 97.1 18 Laboratory Data Labs 24H Laboratory Tests 2 09/12/21 18:41: Immature Granulocyte % (Auto) 1.2, Neutrophils (%) (Auto) 80.7H, Lymphocytes (%) (Auto) 9.9L, Monocytes (%) (Auto) 7.9, Eosinophils (%) (Auto) 0.1, Basophils (%) (Auto) 0.2, Neutrophils # (Auto) 12.8H, Lymphocytes # (Auto) 1.6, Monocytes # (Auto) 1.3H, Eosinophils # (Auto) 0.0, Basophils # (Auto) 0.0, Nucleated Red Blood Cells % (auto) 0.1H, POC Troponin I (Misc) 0.17H, Anion Gap 7L, Glomerular Filtration Rate 15.0L, Calcium Level 10.2, Magnesium Level 2.4, Total Bilirubin 0.9, Direct Bilirubin 0.3H, Aspartate Amino Transf (AST/SGOT) 27, Alanine Aminotransferase (ALT/SGPT) 11L, Alkaline Phosphatase 103, DG-Yhb-G-Type Natriuretic Peptide 12741Y, Total Protein 7.2, Albumin 2.6L, Albumin/Globulin Ratio 0.6L, Lipase 89, Thyroid Stimulating Hormone (TSH) 3.220 09/12/21 19:35: Coronavirus (COVID-19)(PCR) NEGATIVE, Influenza Type A (RT-PCR) NEGATIVE, Influenza Type B (RT-PCR) NEGATIVE, Respiratory Syncytial Virus (PCR) NEGATIVE CBC/BMP Laboratory Tests 09/12/21 18:41 Home Medications Scheduled Apixaban (Eliquis) 2.5 Mg Tablet, 2.5 MG PO BID Calcitriol (Calcitriol) 0.25 Mcg Capsule, 0.25 MCG PO 3XW THURSDAY, THURSDAY AND THURSDAY Digoxin (Digoxin) 250 Mcg Tablet, 250 MCG PO DAILY Famotidine (Pepcid) 20 Mg Tablet, 20 MG PO DAILY Melatonin (Melatonin) 5 Mg Tablet, 5 MG PO QHS Midodrine HCl (Midodrine HCl) 5 Mg Tablet, 5 MG PO TID 0800, 1200, 1600 Salmeterol/Fluticasone (Advair 500-50 Diskus) 1 Each Blst.w.dev, 1 PUFF INH BID Sertraline Hcl (Zoloft) 100 Mg Tablet, 100 MG PO QHS Scheduled PRN Albuterol Sulfate (Proair Respiclick) 90 Mcg Aer.pow.ba, 2 PUFF INH Q6H PRN for SHORTNESS OF BREATH Bisacodyl (Dulcolax) 10 Mg Supp.rect, 1 SUPP ID DAILY PRN for CONSTIPATION STEP 3: IF BISACODYL TABLET IS INEFFECTIVE Bisacodyl (Bisacodyl) 5 Mg Tablet.dr, 5 MG PO DAILY PRN for CONSTIPATION STEP 2 IF LACTULOSE IS INEFFECTIVE Lactulose (Lactulose) 10 Gm/15 Ml Solution, 30 ML PO DAILY PRN for CONSTIPATION IF NO BM IN 3 DAYS: STEP 1 Sodium Phosphate,Sierra-Dibasic (Fleet Enema) 133 Ml Enema, 1 JERED ID DAILY PRN for CONSTIPATION STEP 4: IF BISACODYL SUPPOSITORY IS INEFFECTIVE Allergies Coded Allergies: NSAIDS (Non-Steroidal Anti-Inflamma (Verified Allergy, Unknown, 08/28/21) Penicillins (Verified Allergy, Unknown, 08/28/21) Quinolones (Verified Allergy, Unknown, 08/28/21) capsaicin (Verified Allergy, Unknown, 08/28/21) diclofenac (Verified Allergy, Unknown, 08/28/21) misoprostol (Verified Allergy, Unknown, 08/28/21) risedronate sodium (Verified Allergy, Unknown, 08/28/21) GME ATTESTATION GME ATTESTATION My faculty preceptor for this patient encounter was physically present during the encounter and was fully available. All aspects of the patient interview, examination, medical decision making process, and medical care plan development were reviewed and approved by the faculty preceptor. The faculty preceptor is aware and concurs with the plan as stated in the body of this note and will attest to such by his/her cosignature. ATTENDING NOTE I, Watler Gary MD, have examined this patient with medical student and performed my own physical exam, as well as reviewed the documentation and edited where necessary. I have discussed in detail with the student the findings and plan of treatment as documented by the student and edited their note. I agree with their findings and treatment plan and have edited their documentation. I will continue to follow the patient during this hospital stay. JAZMINE GROVES S-3 Sep 12, 2021 22:15 PERLA BROTHERS DO Sep 12, 2021 23:07 WALTER GARY MD Sep 13, 2021 02:03
[2021-09-12 22:25] LABS: DIGOXIN LEVEL > 5.0 NG/ML (0.5-2.0)
[2021-09-12 22:48] LABS: C REACTIVE PROTEIN QUANTITATIV 2.74 MG/DL (0.00-0.30)
[2021-09-12 22:52] LABS: ERYTHROCYTE SEDIMENTATION RATE 4 mm/hr (0-30)
[2021-09-12] MEDS ORDERED: DIGO0.253 PO (23:26)
[2021-09-12] MEDS ORDERED: BISA5TAB15 PO (23:26)
[2021-09-12] MEDS ORDERED: CALC1CAP31 PO (23:26)
[2021-09-12] MEDS ORDERED: FLEEENE12 PR (23:26)
[2021-09-12] MEDS ORDERED: LACT20EL PO (23:26)
[2021-09-12] MEDS ORDERED: HOME MED LIST COMPLETE! XX SCH (23:30)
[2021-09-13] VITALS (15 sets, daily range): BP systolic 94–111; BP diastolic 41–79
[2021-09-13] MEDS ORDERED: VANCOMYCIN HCL 750 MG, VIAL MATE ADAPTER 1 EACH in NS 250 ML IV SCH ×2 (00:15→16:00)
[2021-09-13] MEDS ORDERED: FLEET ENEMA PR PRN (00:30)
[2021-09-13] MEDS ORDERED: LACTULOSE 20 GM/30 ML SYRUP UD PO PRN (00:30)
[2021-09-13] MEDS ORDERED: COMBIVENT RESPIMAT 100-20MCG INHALER 4GM INH PRN (00:30)
[2021-09-13] MEDS ORDERED: BISACODYL 10 MG SUPP PR PRN (00:30)
[2021-09-13] MEDS ORDERED: BISACODYL 5 MG TAB PO PRN (00:30)
[2021-09-13] MEDS ORDERED: MEROPENEM INJ 1 GM in IV 1 EA IV SCH (01:00)
[2021-09-13 05:31] LABS: HEMATOCRIT 39.5 % (36.0-47.0); HEMOGLOBIN 11.4 g/dl (12.0-15.5); MEAN CORPUSCULAR HGB CONC 28.9 g/dl (32.0-36.5); RED BLOOD COUNT 3.56 10^6/uL (4.00-5.40); WHITE BLOOD COUNT 17.6 10^3/uL (4.0-10.0)
[2021-09-13 06:03] LABS: CALCIUM LEVEL 9.7 MG/DL (8.8-10.2); CREATININE FOR GFR 3.41 MG/DL (0.55-1.30); DIGOXIN LEVEL 0.5 NG/ML (0.5-2.0); GLOMERULAR FILTRATION RATE 13.9 (>39); MAGNESIUM LEVEL 2.2 MG/DL (1.8-2.4); POTASSIUM SERUM 4.1 MEQ/L (3.5-5.1); VANCOMYCIN RANDOM 18.6 UG/ML
[2021-09-13 06:12] LABS: PLATELET COUNT, AUTOMATED 84 10^3/uL (150-450)
[2021-09-13] MEDS ORDERED: LIDOCAINE 1% SDV 5ML VIAL SC PRN (08:05)
[2021-09-13] MEDS ORDERED: SODIUM CHLORIDE 0.9% 1000ML IV PRN (08:05)
[2021-09-13] MEDS ORDERED: CALCITRIOL 0.25 MCG CAP (S0169) PO SCH (09:00)
[2021-09-13] MEDS ORDERED: APIXABAN 2.5 MG TAB (ELIQUIS) PO SCH (09:00)
[2021-09-13] MEDS: FAMOTIDINE 20 MG TAB PO SCH (09:01)
[2021-09-13] MEDS: MIDODRINE 5 MG TAB PO SCH ×2 (09:01→12:30)
--- NOTE | 2021-09-13 11:23 | IPNPDOC ---
Subjective Date Seen The patient was seen on 09/13/21. Subjective Chief Complaint/HPI No acute overnight events. Patient is confused which is her baseline from her dementia. Patient's blood pressure has been chronically low. And as per Dr. Rosas they have not been able to remove much fluids so she always has fluid overload. Dr. Rosas spoke with niece and have started the conversation about stopping dialysis. 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 Objective Physical Examination General Exam: Positive: Alert, Cooperative, No Acute Distress, Other (Confused) Chest Exam: Positive: Diminished (Diminished at the base), Other (Kyphosis); Negative: Rales, Rhonchi, Wheezing Heart Exam: Positive: Bradycardic, Irregular Rhythm, Normal S1, Normal S2, Murmurs (Soft systolic murmur); Negative: Rubs Abdomen Exam: Positive: Normal bowel sounds, Soft; Negative: Tenderness Extremity Exam: Positive: Edema (1+ edema); Negative: Clubbing, Cyanosis Psych Exam: Negative: Memory Intact, Oriented x 3, Other Assessment /Plan Assessment This is a 76 year old female with past medical history of dementia, A. fib, CHF, ESRD, CAD, COPD with chronic hypoxic respiratory failure, cirrhosis of liver, chronic hypotension, morbid obesity, GERD, thrombocytopenia, anxiety, depression, hypertension, hyperlipidemia, who was discharged on 09/12/2021 from [facility] after being admitted for afib with RVR and CHF exacerbation. Patient has baseline dementia and is a poor historian so Hx is obtained from EMS and Ed provider. She was discharged to [place] [facility] earlier and was subsequently sent back to [facility] ED because of hypotension and hypoxia. Patient was noted by EMS to have a SBP in the 80's while satting in the 50%'s while at [place] and upon O2 administration was satting 77% on 4LNC which improved to 88-90% on 6L. At [facility] ED, her BP and O2 had improved, but her HR was 25. An EKG was ordered, Dr. Juvencio wright/cardiology was contacted and he felt this was likely related to Digoxin toxicity. A Digoxin level was ordered and returned >5. Digibind was given in the ED. Patient will be admitted to ICU for continuous night monitor with pacing pads on the chest as a precaution. She remains FULL CODE. Digitalis toxicity causing bradycardia now reversed. Right lower lobe pneumonia Patient is s/p 6 days of vanco + meropenem Procalcitonin of 0.52, unchanged from 09/10 CXR showing possible left lower lobe infiltrate vs. atelectasis, will resume meropenem + vancomycin w/ hemodialysis and trend procal Continue with meropenem and vancomycin COPD with chronic hypoxic respiratory failure Continue Advair, Combivent Oxygen requirement is at 3 L which is her baseline ESRD with secondary hyperparathyroidism Nephrology consulted for maintenance hemodialysis Continue calcitriol Cirrhosis of liver CT abdomen pelvis on 08/28/2021 :Mild hepatomegaly. Liver contour nodularity is concerning for cirrhosis. This is likely why she has intermittent thrombocytopenia Chronic hypertension Continue midodrine Afib Continue Eliquis Vent rate control becomes an issue we can restart digoxin at much lower doses possibly will need 0.125 only 3 times a week being a dialysis patient CHF w/ pEF 08/29 TTE w/ 70% LVEF showing severe LA dilatation, mild , mild pulmonary HTN, Mod pericardial effusion Patient in ESRD on HD, as per nephrology continue w/ fluid removal Anemia of chronic disease and iron deficient Dementia Not on any medications outpatient GERD Continue Famotidine Anxiety/depression Continue sertraline Plan/VTE VTE Prophylaxis Ordered?: Yes VS, I&O, 24H, Fishbone Vital Signs/I&O Vital Signs Date Time Temp Pulse Resp B/P (MAP) Pulse Ox O2 Delivery O2 Flow Rate FiO2 09/13/21 07:00 58 101/50 (67) 98 Nasal Cannula 3.0 09/13/21 04:00 96.6 09/13/21 00:45 30 I&O- Last 24 Hours up to 6 AM 09/13/21 06:00 Intake Total 200 ml Balance 200 ml Laboratory Data 24H LABS Laboratory Tests 2 09/12/21 18:40: Procalcitonin 0.52 09/12/21 18:41: Immature Granulocyte % (Auto) 1.2, Neutrophils (%) (Auto) 80.7H, Lymphocytes (%) (Auto) 9.9L, Monocytes (%) (Auto) 7.9, Eosinophils (%) (Auto) 0.1, Basophils (%) (Auto) 0.2, Neutrophils # (Auto) 12.8H, Lymphocytes # (Auto) 1.6, Monocytes # (Auto) 1.3H, Eosinophils # (Auto) 0.0, Basophils # (Auto) 0.0, Nucleated Red Blood Cells % (auto) 0.1H, Erythrocyte Sedimentation Rate 4, POC Troponin I (Misc) 0.17H, Anion Gap 7L, Glomerular Filtration Rate 15.0L, Calcium Level 10.2, Magnesium Level 2.4, Total Bilirubin 0.9, Direct Bilirubin 0.3H, Aspartate Amino Transf (AST/SGOT) 27, Alanine Aminotransferase (ALT/SGPT) 11L, Alkaline Phosphatase 103, C-Reactive Protein, Quantitative 2.74H, DZ-Sfs-Y-Type Natriuretic Peptide 18680H, Total Protein 7.2, Albumin 2.6L, Albumin/Globulin Ratio 0.6L, Lipase 89, Thyroid Stimulating Hormone (TSH) 3.220, Digoxin Level > 5.0*H 09/12/21 19:35: Coronavirus (COVID-19)(PCR) NEGATIVE, Influenza Type A (RT-PCR) NEGATIVE, Influenza Type B (RT-PCR) NEGATIVE, Respiratory Syncytial Virus (PCR) NEGATIVE 09/13/21 00:41: Bedside Glucose (Misc Panel) 98 09/13/21 04:49: Nucleated Red Blood Cells % (auto) 0.0, Immature Platelet Fraction 12.7H, Anion Gap 9, Glomerular Filtration Rate 13.9L, Calcium Level 9.7, Magnesium Level 2.2, Random Vancomycin Level 18.6, Digoxin Level 0.5 CBC/BMP Laboratory Tests 09/12/21 18:41 09/13/21 04:49 Laurie Flores MD Sep 13, 2021 08:09
[2021-09-13] MEDS: ADVAIR HFA 230/21MCG INHALER INH SCH ×3 (12:17→19:19)
[2021-09-13] MEDS ORDERED: LORazepam 1 MG TAB PO PRN (14:45)
[2021-09-13] MEDS ORDERED: HYOSCYAMINE SULFATE 0.125 MG SUBL TABLET PO PRN (14:45)
--- NOTE | 2021-09-13 15:02 | CR ---
NEPHROLOGY CONSULTATION DATE: 09/13/2021 REQUESTING CLINICIAN: Laurie Flores MD. REASON FOR CONSULTATION: To assist in the management of end-stage renal disease. HISTORY OF PRESENT ILLNESS: Ms. Downing is a 76-year-old female who is a fdc resident at [facility]. She has multiple chronic medical problems including significant dementia, congestive heart failure, atrial fibrillation, end-stage renal disease, coronary artery disease, COPD and gastroesophageal reflux disease. She has been recently admitted to [facility] a couple of times. She was discharged from the hospital yesterday and went back to the fdc where she was found to be hypoxic and bradycardic and sent back to the Emergency Room at [facility] and later transferred to [facility]. Her blood pressure was found to be in the 80s at [facility] and oxygen saturation in the 70s. In any event here in the Emergency Room she was found to have an elevated digoxin level and also she was hypoxic due to which she was admitted last night. Patient is seen this morning. PAST MEDICAL HISTORY: Significant for: 1. Dementia. 2. Congestive heart failure with preserved ejection fraction. 3. Atrial fibrillation. 4. End-stage renal disease requiring maintenance hemodialysis. 5. Coronary artery disease. 6. History of COPD. 7. Chronic hypotension. 8. Gastroesophageal reflux disease. 9. Anemia. 10. Thrombocytopenia. 11. Hyperlipidemia. PAST SURGICAL HISTORY: Significant for __ dental implants without any details known. FAMILY HISTORY: Unobtainable due to dementia. I discussed with her niece just last night and apparently patient does have a sister with also dementia and other medical problems, but no other relevant information is available at present. PERSONAL AND SOCIAL HISTORY: Patient is quite demented and unable to provide any information. She is a fdc resident at [facility]. At present no smoking, alcohol or drug use. ALLERGIES: 1. PENICILLIN. 2. quinolones. 3. misoprostol. 4. diclofenac. 5. NSAIDs. MEDICATIONS: Her chronic medications include: 1. Eliquis 2.5 mg twice a day. 2. Calcitriol 0.25 mcg three times a week. 3. Digoxin 250 mcg daily. 4. Famotidine 20 mg daily. 5. Melatonin 5 mg at bedtime. 6. Midodrine 5 mg three times a day. 7. Advair Diskus twice a day. 8. Sertraline 100 mg at bedtime. 9. Albuterol inhaler as needed for dyspnea. 10. Lactulose 30 mL p.r.n. for constipation. REVIEW OF SYSTEMS: Patient is quite demented and not able to provide any information. PHYSICAL EXAMINATION: Temperature 98.6 degrees Fahrenheit, heart rate 63 per minute and respiratory rate 18 per minute. Blood pressure about 101/50 mmHg and oxygen saturation 98% on 3 liters of oxygen. General: Patient is lying in bed with head end elevated in no acute distress at present. Head: Atraumatic. Oral mucosa is somewhat dry. Neck: Supple and JVD difficult to be assessed. Heart: Sounds are irregular in rhythm. Lungs: With diminished breath sounds. She has poor inspiratory effort. Abdomen: Soft and even on mild touch she screams. Bowel sounds present. Extremities: Without any cyanosis or clubbing. She has no peripheral edema. Neurologically: She is quite demented. LABORATORY DATA: WBC count 17.6, hemoglobin 11.4, hematocrit 39.5, platelets 84,000. Sodium 139, potassium 4.1, chloride 106, CO2 24, BUN 26, creatinine 3.41, calcium 9.2 and magnesium 2.2. LABORATORY DATA (continued): The rest of her labs are as follows: C-reactive protein 2.74. BNP level 17,945. Albumin 2.6. TSH level 3.22. Digoxin level was reported to be greater than 5 last night and this morning her digoxin level is 0.5. A random vancomycin level 18.6. PROBLEMS AND PLAN: 1. End-stage renal disease: Patient is due for dialysis today. I had discussed with her niece last night about her deteriorating condition and progressive dementia. Her niece has expressed her concerns also about progressive dementia and consideration for possible stopping dialysis. Patient family services have been informed and advised to look into the situation for possible stoppage of dialysis and Comfort Care. So far patient has a Full Code status. We will plan dialysis this afternoon unless a decision is made for stopping dialysis. 2. Bradycardia and hypoxemia: Hypoxemia was unexpected. Bradycardia probably related to elevated digoxin level which has already improved. Her digoxin dose should be 0.125 mcg three times a week. 3. Congestive heart failure: Unfortunately patient has chronic hypotension and she does not tolerate any fluid removal with dialysis. We will try to remove about 1.5 liters as tolerated. 4. Anemia: Her anemia is stable and does not need any urgent intervention. 5. Dementia: Patient has advanced dementia nd could not tell me name of her niece or sister. She could not tell me her birthday. I feel that DNR and withdrawal from dialysis would be appropriate considering her advanced dementia and multiple comorbid conditions requiring recurrent hospitalization. Thank you for involving me in the care of Ms. Downing. I will follow her along with her.
[2021-09-13] MEDS ORDERED: **VANCO AFTER HD** MISC XX SCH (16:00)
[2021-09-13] MEDS ORDERED: VANCOMYCIN HCL 500 MG in D5W MINI-BAG PLUS 100 ML IV SCH (16:00)
[2021-09-13] MEDS ORDERED: MEROPENEM INJ 500 MG in IV 1 EA IV SCH (16:00)
--- NOTE | 2021-09-13 18:14 | IPNPDOC ---
Text Note Date of Service The patient was seen on 09/13/21. NOTE Patient is demented and bed bound, with chronic hypotension and failure to t hrive. 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 Family got back today with their decision to stop dialysis and make her comfortable. They want her to go to hospice house. MOLST Form updated. PFS notified and hospice consulted. Will transfer patient to [facility] status. VS,Jadonbone, I+O VS, Fishbone, I+O Laboratory Tests 09/12/21 18:41 09/13/21 04:49 Vital Signs Date Time Temp Pulse Resp B/P (MAP) Pulse Ox O2 Delivery O2 Flow Rate FiO2 09/13/21 16:09 2.0 09/13/21 12:31 66 107/55 (72) 90 09/13/21 12:00 97.3 20 Nasal Cannula I&O- Last 24 Hours up to 6 AM 09/13/21 06:00 Intake Total 200 ml Balance 200 ml Laurie Flores MD Sep 13, 2021 18:13
[2021-09-13] MEDS: SERTRALINE 100 MG TAB PO SCH (19:59)
[2021-09-13] MEDS ORDERED: RAMELTEON 8 MG TAB (ROZEREM) PO SCH (21:00)
[2021-09-14] MEDS: ADVAIR HFA 230/21MCG INHALER INH SCH ×2 (07:25→19:20)
[2021-09-14] MEDS: FAMOTIDINE 20 MG TAB PO SCH (08:03)
--- NOTE | 2021-09-14 12:27 | IPN ---
PROGRESS NOTE DATE: 09/14/2021 SUBJECTIVE: Patient is unresponsive; unable to obtain Review of Systems. OBJECTIVE: Vital signs: Temperature 97.3, pulse 59, respiratory rate 20, blood pressure 107/55, 90% on 2 liters nasal cannula. General: Patient is obtunded, lethargic, does not respond to commands, does not answer to her name. HEENT: Dry mucous membranes. Neck: No cervical lymphadenopathy, no JVD. Back: Kyphotic. Lungs: Diminished, no wheezes, rhonchi or rales. Heart: S1 and S2 bradycardic, irregularly irregular, systolic ejection murmur left lower sternal border without radiation. Abdomen: Soft, nontender, nondistended, positive bowel sounds. Extremities: 1+ pitting edema. LABORATORY DATA/IMAGING STUDIES/MICROBIOLOGY: Please see the chart. ASSESSMENT: This is a 76-year-old female, Do Not Resuscitate, Do Not Intubate admitted on 09/12/2021 with past medical history significant for end-stage renal disease on hemodialysis Mondays, Wednesdays and Fridays, CHF with preserved ejection fraction, chronic afib, dementia, CAD, COPD on 2-3 liters home oxygen, chronic hypoxic respiratory failure, chronic hypotension, GERD, iron deficiency anemia, morbid obesity history, thrombocytopenia, anxiety with major depressive disorder, hypertension, hyperlipidemia, history of urogenital implants admitted due to bradycardia, systolic pressure in the 80s. Digoxin level was 6. She was admitted for digoxin toxicity. Chest x-ray showed infiltrate on the right lung. ACTIVE ISSUES: 1. Bradycardia secondary to digoxin toxicity status post Digibind. 2. Digoxin toxicity. 3. End-stage renal disease. 4. Chronic afib. 5. CHF with preserved ejection fraction of 70%. 6. Mild pulmonary hypertension. 7. History of CAD. PLAN: Patient is currently Comfort Measures Only, Do Not Resuscitate, Do Not Intubate. Her Health Care Proxy had requested Comfort Measures Only. She has failure to thrive, chronic hypotension, bed bound and demented, unable to be dialyzed per Dr. Rosas senior operations analyst and was made Comfort Measures Only. Patient has been transferred to [facility] status. CODE STATUS: Comfort Measures Only, Do Not Resuscitate, Do Not Intubate. [facility]
[2021-09-14] MEDS: SERTRALINE 100 MG TAB PO SCH (19:56)
[2021-09-15] MEDS: MORPHINE 10MG/0.5ML ORAL CONCENTRATE SOLUTION U/D SL PRN ×4 (04:59→22:41)
[2021-09-15] MEDS: ADVAIR HFA 230/21MCG INHALER INH SCH ×2 (07:29→18:06)
[2021-09-15] MEDS: FAMOTIDINE 20 MG TAB PO SCH (08:19)
[2021-09-15] MEDS: SERTRALINE 100 MG TAB PO SCH (20:07)
[2021-09-16] MEDS: ADVAIR HFA 230/21MCG INHALER INH SCH ×2 (08:44→19:33)
[2021-09-16] MEDS: FAMOTIDINE 20 MG TAB PO SCH (08:47)
[2021-09-16] MEDS: MORPHINE 10MG/0.5ML ORAL CONCENTRATE SOLUTION U/D SL PRN (15:28)
[2021-09-16] MEDS: SERTRALINE 100 MG TAB PO SCH (20:03)
[2021-09-17] MEDS: ADVAIR HFA 230/21MCG INHALER INH SCH ×2 (08:02→19:30)
[2021-09-17] MEDS: FAMOTIDINE 20 MG TAB PO SCH (08:16)
[2021-09-17] MEDS: MORPHINE 10MG/0.5ML ORAL CONCENTRATE SOLUTION U/D SL PRN (08:21)
[2021-09-17] MEDS: SERTRALINE 100 MG TAB PO SCH (20:58)
[2021-09-18] MEDS: ADVAIR HFA 230/21MCG INHALER INH SCH (07:12)
[2021-09-18] MEDS ORDERED: POLYVINYL ALCOHOL OPHTH SOLN 15 ML(LIQUITEARS) OU PRN (08:20)
[2021-09-18] MEDS: MORPHINE 10MG/0.5ML ORAL CONCENTRATE SOLUTION U/D SL PRN (08:21)
[2021-09-18] MEDS: FAMOTIDINE 20 MG TAB PO SCH (08:22)
--- NOTE | 2021-09-18 12:04 | DS.PDOC ---
Discharge Summary General Date of Admission Sep 12, 2021 at 22:22 Date of Discharge 09/18/21 COMFORT MEASURES ONLY, DNR/DNI Discharge Summary DISCHARGE DIAGNOSIS: 1. Bradycardia secondary to digoxin toxicity status post Digibind. 2. Digoxin toxicity. 3. End-stage renal disease. 4. Chronic afib. 5. CHF with preserved ejection fraction of 70%. 6. Mild pulmonary hypertension. 7. History of CAD. 8. Liver cirrhosis 9. Dementia 10. 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 Alison [facility] COURSE: This is a 76-year-old female, Do Not Resuscitate, Do Not Intubate admitted on 09/12/2021 with past medical history significant for end-stage renal disease on hemodialysis Mondays, Wednesdays and Fridays, CHF with preserved ejection fraction, chronic afib, dementia, CAD, COPD on 2-3 liters home oxygen, chronic hypoxic respiratory failure, chronic hypotension, GERD, iron deficiency anemia, morbid obesity history, thrombocytopenia, anxiety with major depressive disorder, hypertension, hyperlipidemia, history of urogenital implants admitted due to bradycardia, systolic pressure in the 80s. Digoxin level was 6. She was admitted for digoxin toxicity and given Digibind. Chest x- ray showed infiltrate on the right lung. Patient had been treated for 6 days of Vanco and meropenem procalcitonin was 0.52 was unchanged from 09 10 with chest x-ray showing possible left lower lobe infiltrate versus atelectasis. Patient was resumed back on meropenem and vancomycin. She was kept on 3 L oxygen due to history of chronic hypoxic respiratory failure and continued on Advair and Combivent. CT abdomen and pelvis on 1123 showed liver cirrhosis which could most likely explain her intermittent thrombocytopenia. She was kept on midodrine for chronic low blood pressure and Eliquis for her chronic A. fib which was rate controlled. Due to chronic low blood pressure and deteriorating condition, patient could not be dialyzed with recommendations to stop dialysis and to pursue comfort measures only. Patient has chronic hypotension and does not tolerate any fluid removal with dialysis. [employer] was consulted and recommended withdrawal of maintenance dialysis due to advancing dementia and multiple comorbid conditions requiring recurrent hospitalization. Patient was made comfort measures only and change to ALC/SNF status until she on 09/18/2021. DISCHARGE PHYSICAL EXAMINATION: Vital signs: No respiratory rate no blood pressure General: unresponsive Lungs no breath sounds heart no heart sounds abdomen: No bowel sounds Extremities: 1+ pitting edema. LABORATORY DATA/IMAGING STUDIES/MICROBIOLOGY: Please see the chart. Time spent on discharge: 30 minutes Vital Signs/I&Os Vital Signs Date Time Temp Pulse Resp B/P (MAP) Pulse Ox O2 Delivery O2 Flow Rate FiO2 09/18/21 08:21 18 09/18/21 08:00 2.0 09/13/21 12:31 66 107/55 (72) 90 09/13/21 12:00 97.3 Nasal Cannula I&O- Last 24 Hours up to 6 AM 09/18/21 06:00 Intake Total 0 ml Balance 0 ml Discharge Medications No Active Prescriptions or Reported Meds Allergies Coded Allergies: NSAIDS (Non-Steroidal Anti-Inflamma (Verified Allergy, Unknown, 08/28/21) Penicillins (Verified Allergy, Unknown, 08/28/21) Quinolones (Verified Allergy, Unknown, 08/28/21) capsaicin (Verified Allergy, Unknown, 08/28/21) diclofenac (Verified Allergy, Unknown, 08/28/21) misoprostol (Verified Allergy, Unknown, 08/28/21) risedronate sodium (Verified Allergy, Unknown, 08/28/21) MICHAEL CUEVAS MD Sep 18, 2021 12:04
== END 2021-09-18 11:33 | disposition expired | DRG 308 ==
LOC: M ED 18:05 → EDBD 18:05 → M ED INP 22:22 → ENRESERV 23:56 → M PCU 09-13 00:21 → M MSPAV 09-13 15:47
PROVIDERS: ADMIT Family Medicine; ATTEND General Practice
PROC: 5A1D70Z Performance of Urinary Filtration, Intermittent, Less than 6 Hours Per Day (ICD-10-PCS; principal; 2021-09-13)
DX: R00.1 Bradycardia, unspecified (principal); N18.6 End stage renal disease; J18.9 Pneumonia, unspecified organism; J96.11 Chronic respiratory failure with hypoxia; I50.32 Chronic diastolic (congestive) heart failure; I13.2 Hypertensive heart and chronic kidney disease with heart failure and with stage 5 chronic kidney disease, or end stage renal disease; I48.20 Chronic atrial fibrillation, unspecified; T46.0X5A Adverse effect of cardiac-stimulant glycosides and drugs of similar action, initial encounter; I27.20 Pulmonary hypertension, unspecified; I95.89 Other hypotension; F03.90 Unspecified dementia, unspecified severity, without behavioral disturbance, psychotic disturbance, mood disturbance, and anxiety; Z66 Do not resuscitate; J44.9 Chronic obstructive pulmonary disease, unspecified; E66.01 Morbid (severe) obesity due to excess calories; E78.5 Hyperlipidemia, unspecified; Z79.899 Other long term (current) drug therapy; Z88.8 Allergy status to other drugs, medicaments and biological substances; D50.0 Iron deficiency anemia secondary to blood loss (chronic); K74.60 Unspecified cirrhosis of liver; D69.6 Thrombocytopenia, unspecified